=== PATIENT | male | born 1965 | race Caucasian/White ===

== ENCOUNTER 2020-08-10 09:09 | Outpatient (REF) | payer OTHER, SELFPAY ==
[2020-08-10 09:40] LABS: Basophils Percent Auto 0.7 % (0-2); Eosinophils Absolute Auto 0.3 X10*3/uL (0.0-0.4); Eosinophils Percent Auto 5.6 % (0-4); Hematocrit 42.5 % (42-52); Imm Gran Abs Auto 0.01 X10*3/uL (0.00-0.03); Imm Gran Pct Auto 0.2 % (0.0-0.4); Lymphocytes Absolute Auto 1.3 X10*3/uL (1.2-4.9); Lymphocytes Percent Auto 21.2 % (20-40); MANUAL DIFF FLAG NO; Mean Corpuscular HGB Conc 32.9 g/dl (31.0-36.0); Mean Corpuscular Hemoglobin 29.3 pg (27.0-33.0); Mean Corpuscular Volume 88.9 fL (80-98); Mean Platelet Volume 9.5 fL (9.4-12.4); Monocytes Absolute Auto 0.4 X10*3/uL (0.1-1.2); Monocytes Percent Auto 6.8 % (2-11); Neutrophils Percent Auto 65.5 % (45-73); Platelet Count 247 X10*3/uL (160-400); Red Blood Count 4.78 X10*6/uL (4.60-5.80); Red Cell Distribution Width 13.1 % (11.0-16.0)
[2020-08-10 09:42] LABS: Glucose Urine UA >=1000 MG/DL (NEG); Leukocyte Esterase Urine NEG (NEG); Nitrite Urine NEG (NEG); PH 6.5 (5.0-8.0); Specific Gravity - Urine 1.025 (1.005-1.025); Urine Blood NEG (NEG); Urine Ketones NEG (NEG); Urine Protein NEG (NEG-TRACE)
[2020-08-10 09:51] LABS: Appearance Urine CLEAR; Color Urine YELLOW
[2020-08-10 09:54] LABS: Estimated Average Glucose 301 mg/dL; Hemoglobin A1c % 12.1 %
[2020-08-10 10:02] LABS: Alanine Aminotransferase 24 U/L (0-40); Albumin Level 4.2 g/dL (3.5-5.0); Alkaline Phosphatase 97 U/L (39-117); Anion Gap 11 (12-20); Aspartate Amino Transferase 18 U/L (5-37); Bilirubin Total 0.5 mg/dL (0.0-1.0); Blood Urea Nitrogen 13 mg/dL (9-16); Calcium 9.2 mg/dL (8.4-10.2); Carbon Dioxide 30 mmol/L (22-29); Chloride 101 mmol/L (96-108); Cholesterol 144 mg/dL; Creatinine Urine 128.05 mg/dL; Estimated Glomerular Filt Rate > 60; Glucose Fasting 241 mg/dL (60-99); HDL Cholesterol 55 mg/dL; LDL Cholesterol Calculated 79 mg/dl; Microalbum/Creatinine Ratio Ur 6.2 ug/mg cr; Potassium 4.2 mmol/l (3.3-5.1); Sodium 138 mmol/L (135-145); Total Protein 7.1 g/dL (6.5-8.0); Triglycerides 53 mg/dL
[2020-08-10 10:03] LABS: RBC Urine 0-2 /HPF (0); WBC Urine 0 /HPF (0-4)
[2020-08-10 10:22] LABS: TSH reflex Free T4 1.64 mIU/mL (0.32-4.0)
== END 2020-08-10 09:10 | disposition home or self-care (01) ==
LOC: HO.LAB 09:09
PROVIDERS: PCP Internal Medicine; Visit Provider Internal Medicine
DX: E11.9 Type 2 diabetes mellitus without complications (principal); E78.5 Hyperlipidemia, unspecified; E66.3 Overweight; G62.9 Polyneuropathy, unspecified; K21.9 Gastro-esophageal reflux disease without esophagitis; R79.89 Other specified abnormal findings of blood chemistry
CPT/HCPCS: 36415; 80053; 80061; 81001; 82043; 83036; 84443; 85025

== ENCOUNTER 2020-11-02 08:23 | Outpatient (REF) | payer OTHER, SELFPAY ==
[2020-11-02 09:09] LABS: Glucose Urine UA 500 MG/DL (NEG); Leukocyte Esterase Urine NEG (NEG); Nitrite Urine NEG (NEG); Specific Gravity - Urine >= 1.030 (1.005-1.025); Urine Blood NEG (NEG); Urine Ketones NEG (NEG); Urine Protein NEG (NEG-TRACE)
[2020-11-02 09:09] LABS: MANUAL DIFF FLAG NO
[2020-11-02 09:15] LABS: Appearance Urine CLEAR; Color Urine YELLOW
[2020-11-02 09:17] LABS: Basophils Percent Auto 1.1 % (0-2); Eosinophils Absolute Auto 0.5 X10*3/uL (0.0-0.4); Eosinophils Percent Auto 12.9 % (0-4); Hematocrit 41.5 % (42-52); Hemoglobin 13.4 g/dl (14.0-18.0); Imm Gran Abs Auto 0.01 X10*3/uL (0.00-0.03); Imm Gran Pct Auto 0.3 % (0.0-0.4); Lymphocytes Absolute Auto 1.4 X10*3/uL (1.2-4.9); Lymphocytes Percent Auto 37.5 % (20-40); Mean Corpuscular HGB Conc 32.3 g/dl (31.0-36.0); Mean Corpuscular Hemoglobin 29.1 pg (27.0-33.0); Mean Corpuscular Volume 90.2 fL (80-98); Mean Platelet Volume 9.2 fL (9.4-12.4); Monocytes Absolute Auto 0.3 X10*3/uL (0.1-1.2); Monocytes Percent Auto 8.5 % (2-11); Neutrophils Absolute Auto 1.4 X10*3/uL (2.0-8.3); Neutrophils Percent Auto 39.7 % (45-73); Platelet Count 251 X10*3/uL (160-400); Red Cell Distribution Width 13.3 % (11.0-16.0); White Blood Count 3.6 X10*3/uL (4.8-10.8)
[2020-11-02 09:43] LABS: Alanine Aminotransferase 21 U/L (0-40); Albumin Level 4.3 g/dL (3.5-5.0); Alkaline Phosphatase 81 U/L (39-117); Anion Gap 13 (12-20); Aspartate Amino Transferase 17 U/L (5-37); Bilirubin Total 0.4 mg/dL (0.0-1.0); Blood Urea Nitrogen 15 mg/dL (9-16); Calcium 9.1 mg/dL (8.4-10.2); Carbon Dioxide 28 mmol/L (22-29); Chloride 103 mmol/L (96-108); Cholesterol 157 mg/dL; Estimated Glomerular Filt Rate > 60; Glucose Fasting 177 mg/dL (60-99); HDL Cholesterol 56 mg/dL; LDL Cholesterol Calculated 91 mg/dl; Potassium 4.6 mmol/L (3.3-5.1); Sodium 139 mmol/L (135-145); Total Protein 7.3 g/dL (6.5-8.0); Triglycerides 50 mg/dL
[2020-11-02 09:48] LABS: Creatinine Urine 185.59 mg/dL; Microalbum/Creatinine Ratio Ur 5.9 ug/mg cr
[2020-11-02 10:07] LABS: TSH reflex Free T4 1.98 uIU/mL (0.32-4.0)
[2020-11-02 14:06] LABS: Folate 10.9 ng/mL (> or = 4.0); Vitamin B12 272 pg/mL (200-900)
== END 2020-11-02 08:24 | disposition home or self-care (01) ==
LOC: HO.LAB 08:23
PROVIDERS: PCP Internal Medicine; Visit Provider Internal Medicine
DX: E11.9 Type 2 diabetes mellitus without complications (principal); E66.3 Overweight; E78.00 Pure hypercholesterolemia, unspecified; K21.9 Gastro-esophageal reflux disease without esophagitis; G62.9 Polyneuropathy, unspecified
CPT/HCPCS: 36415; 80053; 80061; 81003; 82043; 82607; 82746; 84443; 85025

== ENCOUNTER → 2020-12-04 13:56 | Outpatient (BNVA) | payer OTHER, SELFPAY | PROVIDERS: PCP Internal Medicine; Visit Provider Internal Medicine | DX: E11.40 Type 2 diabetes mellitus with diabetic neuropathy, unspecified (principal); E78.5 Hyperlipidemia, unspecified; I10 Essential (primary) hypertension; E78.00 Pure hypercholesterolemia, unspecified; E55.9 Vitamin D deficiency, unspecified; Z88.0 Allergy status to penicillin; Z79.84 Long term (current) use of oral hypoglycemic drugs; Z79.899 Other long term (current) drug therapy | CPT/HCPCS: 82947 ==

== ENCOUNTER → 2021-01-29 15:57 | Outpatient (BNVA) | payer OTHER, SELFPAY | PROVIDERS: PCP Internal Medicine; Visit Provider Internal Medicine | DX: E78.5 Hyperlipidemia, unspecified (principal); I10 Essential (primary) hypertension; E11.9 Type 2 diabetes mellitus without complications | CPT/HCPCS: 82947 ==

== ENCOUNTER 2021-02-15 09:06 | Outpatient (REF) | payer OTHER, SELFPAY ==
[2021-02-15 09:25] LABS: MANUAL DIFF FLAG NO
[2021-02-15 09:41] LABS: Eosinophils Absolute Auto 0.4 X10*3/uL (0.0-0.4); Eosinophils Percent Auto 9.4 % (0-4); Hemoglobin 13.9 g/dl (14.0-18.0); Imm Gran Abs Auto 0.01 X10*3/uL (0.00-0.03); Imm Gran Pct Auto 0.3 % (0.0-0.4); Lymphocytes Absolute Auto 1.5 X10*3/uL (1.2-4.9); Lymphocytes Percent Auto 38.2 % (20-40); Mean Corpuscular HGB Conc 33.1 g/dl (31.0-36.0); Mean Corpuscular Hemoglobin 29.6 pg (27.0-33.0); Mean Corpuscular Volume 89.6 fL (80-98); Mean Platelet Volume 8.9 fL (9.4-12.4); Monocytes Absolute Auto 0.3 X10*3/uL (0.1-1.2); Monocytes Percent Auto 8.4 % (2-11); Neutrophils Absolute Auto 1.6 X10*3/uL (2.0-8.3); Neutrophils Percent Auto 42.7 % (45-73); Platelet Count 231 X10*3/uL (160-400); Red Blood Count 4.69 X10*6/uL (4.60-5.80); Red Cell Distribution Width 13.4 % (11.0-16.0); White Blood Count 3.8 X10*3/uL (4.8-10.8)
[2021-02-15 09:56] LABS: Alanine Aminotransferase 26 U/L (0-40); Albumin Level 4.5 g/dL (3.5-5.0); Alkaline Phosphatase 76 U/L (39-117); Anion Gap 12 (12-20); Aspartate Amino Transferase 21 U/L (5-37); Bilirubin Total 0.4 mg/dL (0.0-1.0); Blood Urea Nitrogen 15 mg/dL (9-16); Calcium 9.1 mg/dL (8.4-10.2); Carbon Dioxide 29 mmol/L (22-29); Chloride 104 mmol/L (96-108); Cholesterol 134 mg/dL; Estimated Glomerular Filt Rate > 60; Glucose Fasting 125 mg/dL (60-99); HDL Cholesterol 52 mg/dL; LDL Cholesterol Calculated 71 mg/dl; Potassium 4.6 mmol/L (3.3-5.1); Sodium 140 mmol/L (135-145); Total Protein 7.5 g/dL (6.5-8.0); Triglycerides 58 mg/dL
[2021-02-15 10:17] LABS: TSH reflex Free T4 0.95 uIU/mL (0.32-4.0)
[2021-02-15 10:18] LABS: Vitamin D 25-OH Total 15.8 ng/mL (>30)
[2021-02-15 10:26] LABS: Glucose Urine UA NEG (NEG); Leukocyte Esterase Urine NEG (NEG); Nitrite Urine NEG (NEG); Urine Blood NEG (NEG); Urine Ketones NEG (NEG); Urine Protein NEG (NEG-TRACE)
[2021-02-15 10:27] LABS: Appearance Urine CLEAR; Color Urine YELLOW
[2021-02-15 10:33] LABS: Estimated Average Glucose 169 mg/dL; Hemoglobin A1c % 7.5 %
[2021-02-15 10:41] LABS: Creatinine Urine 205.71 mg/dL; Microalbum/Creatinine Ratio Ur 4.8 ug/mg cr
[2021-02-17 04:20] LABS: Folate 9.6 ng/mL (> or = 4.0); Vitamin B12 262 pg/mL (200-900)
== END 2021-02-15 09:07 | disposition home or self-care (01) ==
LOC: HO.LAB 09:06
PROVIDERS: Internal Medicine; PCP Internal Medicine; Visit Provider Internal Medicine
DX: E11.42 Type 2 diabetes mellitus with diabetic polyneuropathy (principal); E78.00 Pure hypercholesterolemia, unspecified; K21.9 Gastro-esophageal reflux disease without esophagitis; G62.9 Polyneuropathy, unspecified; E11.9 Type 2 diabetes mellitus without complications; E66.3 Overweight; E55.9 Vitamin D deficiency, unspecified; Z79.4 Long term (current) use of insulin
CPT/HCPCS: 36415; 80053; 80061; 81003; 82043; 82306; 82607; 82746; 83036; 84443; 85025

== ENCOUNTER 2021-03-09 00:13 | Emergency (ER) | payer OTHER, SELFPAY ==
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
[2021-03-09 00:22] VITALS: BP 136/74; PULSE 88; RESP 16; TEMP 36.7; O2SAT 98; BMI 25.9
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
[2021-03-09 01:15] LABS: Basophils Percent Auto 0.9 % (0-2); Eosinophils Absolute Auto 0.2 X10*3/uL (0.0-0.4); Eosinophils Percent Auto 4.2 % (0-4); Hematocrit 39.6 % (42-52); Hemoglobin 13.2 g/dl (14.0-18.0); Imm Gran Abs Auto 0.02 X10*3/uL (0.00-0.03); Imm Gran Pct Auto 0.4 % (0.0-0.4); Lymphocytes Absolute Auto 1.3 X10*3/uL (1.2-4.9); Lymphocytes Percent Auto 28.4 % (20-40); MANUAL DIFF FLAG NO; Mean Corpuscular HGB Conc 33.3 g/dl (31.0-36.0); Mean Corpuscular Hemoglobin 29.7 pg (27.0-33.0); Mean Platelet Volume 8.9 fL (9.4-12.4); Monocytes Absolute Auto 0.3 X10*3/uL (0.1-1.2); Monocytes Percent Auto 6.6 % (2-11); Neutrophils Absolute Auto 2.7 X10*3/uL (2.0-8.3); Neutrophils Percent Auto 59.5 % (45-73); Platelet Count 253 X10*3/uL (160-400); Red Blood Count 4.45 X10*6/uL (4.60-5.80); Red Cell Distribution Width 13.5 % (11.0-16.0); White Blood Count 4.5 X10*3/uL (4.8-10.8)
[2021-03-09] MEDS: iohexoL 350 MG/ML 100 ML INFUS..BTL 85 ML IV (01:27)
[2021-03-09 01:43] LABS: Ethanol 114 mg/dL
[2021-03-09 01:51] LABS: Troponin-I High Sensitivity < 3.5 ng/L (<3.5-35.0)
[2021-03-09 01:53] LABS: Prothrombin Time 11.9 SEC (9.9-13.0)
[2021-03-09 01:57] VITALS: BP 119/65; PULSE 77; RESP 16; TEMP 36.8; O2SAT 98
[2021-03-09] MEDS: Ketorolac Tromethamine 15 MG/ML VIAL IVPUSH (02:01)
[2021-03-09] MEDS: Acetaminophen 325 MG TABLET 975 MG PO (02:01)
[2021-03-09 02:08] LABS: Glucose Urine UA NEG (NEG); Leukocyte Esterase Urine NEG (NEG); Nitrite Urine NEG (NEG); PH 5.5 (5.0-8.0); Specific Gravity - Urine <= 1.005 (1.005-1.025); Urine Blood NEG (NEG); Urine Ketones NEG (NEG); Urine Protein NEG (NEG-TRACE)
[2021-03-09 02:17] LABS: Appearance Urine CLEAR; Color Urine COLORLESS
[2021-03-09 02:17] LABS: Alanine Aminotransferase 27 U/L (0-40); Albumin Level 4.2 g/dL (3.5-5.0); Alkaline Phosphatase 69 U/L (39-117); Anion Gap 17 (12-20); Aspartate Amino Transferase 22 U/L (5-37); Bilirubin Total 0.5 mg/dL (0.0-1.0); Blood Urea Nitrogen 13 mg/dL (9-16); Calcium 9.3 mg/dL (8.4-10.2); Carbon Dioxide 22 mmol/L (22-29); Chloride 101 mmol/L (96-108); Creatinine Clr Calc Pharmacy 83.2; Estimated Glomerular Filt Rate > 60; Glucose Random 134 mg/dL (60-115); Potassium 4.1 mmol/L (3.3-5.1); Sodium 136 mmol/L (135-145)
[2021-03-09 02:29] LABS: Amphetamine Screen Urine Not Detected (Not Detect); Barbiturates, Urine Not Detected (Not Detect); Benzodiazepines Screen Urine Not Detected (Not Detect); Cannabinoid Screen Urine Not Detected (Not Detect); Cocaine Screen Urine Not Detected (Not Detect); Opiate Screen Urine Not Detected (Not Detect); Phencyclidine Screen Urine Not Detected (Not Detect)
== END 2021-03-09 03:36 | disposition home or self-care (01) ==
PROVIDERS: Emergency Provider Student in an Organized Health Care Education/Training Program
DX: S29.9XXA Unspecified injury of thorax, initial encounter (principal); M54.6 Pain in thoracic spine; R10.9 Unspecified abdominal pain; E11.9 Type 2 diabetes mellitus without complications; V43.62XA Car passenger injured in collision with other type car in traffic accident, initial encounter; Y93.9 Activity, unspecified; Y92.410 Unspecified street and highway as the place of occurrence of the external cause; Y99.9 Unspecified external cause status; Z79.4 Long term (current) use of insulin; Z79.899 Other long term (current) drug therapy
CPT/HCPCS: 36415; 71045; 71260; 74177; 80053; 80307; 81003; 82077; 84484; 85025; 85610; 90471; 93005; 96374; 96375; 99284; J1885; Q9967

== ENCOUNTER → 2021-03-14 10:39 | Outpatient (BNVA) | payer OTHER, SELFPAY | PROVIDERS: PCP Internal Medicine; Visit Provider Student in an Organized Health Care Education/Training Program ==

== ENCOUNTER 2021-04-25 09:08 | Outpatient (REF) | payer OTHER, SELFPAY ==
[2021-04-25 10:36] LABS: Alanine Aminotransferase 21 U/L (0-40); Albumin Level 4.4 g/dL (3.5-5.0); Alkaline Phosphatase 84 U/L (39-117); Anion Gap 10 (12-20); Aspartate Amino Transferase 16 U/L (5-37); Bilirubin Total 0.5 mg/dL (0.0-1.0); Blood Urea Nitrogen 12 mg/dL (9-16); Calcium 9.5 mg/dL (8.4-10.2); Carbon Dioxide 29 mmol/L (22-29); Chloride 104 mmol/L (96-108); Cholesterol 114 mg/dL; Estimated Glomerular Filt Rate > 60; Glucose Random 125 mg/dL (60-115); HDL Cholesterol 47 mg/dL; LDL Cholesterol Calculated 56 mg/dl; Potassium 4.7 mmol/L (3.3-5.1); Sodium 138 mmol/L (135-145); Total Protein 7.4 g/dL (6.5-8.0); Triglycerides 57 mg/dL
[2021-04-25 10:48] LABS: Estimated Average Glucose 146 mg/dL; Hemoglobin A1c % 6.7 %
[2021-04-25 10:56] LABS: Vitamin D 25-OH Total 20.2 ng/mL (>30)
[2021-04-26 20:25] LABS: LDL Cholesterol Direct 49 mg/dL (<100)
== END 2021-04-25 09:09 | disposition home or self-care (01) ==
LOC: HO.LAB 09:08
PROVIDERS: Absent Provider Internal Medicine; PCP Internal Medicine; Visit Provider Internal Medicine
DX: E11.9 Type 2 diabetes mellitus without complications (principal); E78.5 Hyperlipidemia, unspecified; E55.9 Vitamin D deficiency, unspecified
CPT/HCPCS: 36415; 80053; 80061; 82306; 83036; 83721

== ENCOUNTER → 2021-05-01 15:34 | Outpatient (BNVA) | payer OTHER, SELFPAY | PROVIDERS: PCP Internal Medicine; Visit Provider Internal Medicine | DX: E11.9 Type 2 diabetes mellitus without complications (principal); I10 Essential (primary) hypertension; E78.5 Hyperlipidemia, unspecified; E55.9 Vitamin D deficiency, unspecified; R94.5 Abnormal results of liver function studies; Z88.0 Allergy status to penicillin; Z79.4 Long term (current) use of insulin; Z79.899 Other long term (current) drug therapy | CPT/HCPCS: 82947 ==

== ENCOUNTER 2021-05-27 08:23 | Outpatient (REF) | payer OTHER, SELFPAY ==
[2021-05-27 08:51] LABS: MANUAL DIFF FLAG NO
[2021-05-27 09:05] LABS: Basophils Percent Auto 0.9 % (0-2); Eosinophils Absolute Auto 0.2 X10*3/uL (0.0-0.4); Eosinophils Percent Auto 7.3 % (0-4); Hematocrit 37.8 % (42-52); Hemoglobin 12.7 g/dl (14.0-18.0); Imm Gran Abs Auto 0.01 X10*3/uL (0.00-0.03); Imm Gran Pct Auto 0.3 % (0.0-0.4); Lymphocytes Absolute Auto 0.9 X10*3/uL (1.2-4.9); Lymphocytes Percent Auto 28.7 % (20-40); Mean Corpuscular HGB Conc 33.6 g/dl (31.0-36.0); Mean Corpuscular Hemoglobin 29.9 pg (27.0-33.0); Mean Corpuscular Volume 88.9 fL (80-98); Mean Platelet Volume 8.9 fL (9.4-12.4); Monocytes Absolute Auto 0.3 X10*3/uL (0.1-1.2); Monocytes Percent Auto 8.8 % (2-11); Neutrophils Absolute Auto 1.7 X10*3/uL (2.0-8.3); Platelet Count 239 X10*3/uL (160-400); Red Blood Count 4.25 X10*6/uL (4.60-5.80); Red Cell Distribution Width 12.8 % (11.0-16.0); White Blood Count 3.2 X10*3/uL (4.8-10.8)
[2021-05-27 09:12] LABS: Estimated Average Glucose 146 mg/dL; Hemoglobin A1c % 6.7 %
[2021-05-27 09:21] LABS: Appearance Urine CLEAR; Color Urine YELLOW; Glucose Urine UA NEG (NEG); Leukocyte Esterase Urine NEG (NEG); Nitrite Urine NEG (NEG); Urine Blood NEG (NEG); Urine Ketones NEG (NEG); Urine Protein NEG (NEG-TRACE)
[2021-05-27 09:36] LABS: Alanine Aminotransferase 23 U/L (0-40); Albumin Level 4.2 g/dL (3.5-5.0); Alkaline Phosphatase 78 U/L (39-117); Anion Gap 11 (12-20); Aspartate Amino Transferase 15 U/L (5-37); Bilirubin Total 0.6 mg/dL (0.0-1.0); Blood Urea Nitrogen 10 mg/dL (9-16); Calcium 9.3 mg/dL (8.4-10.2); Carbon Dioxide 26 mmol/L (22-29); Chloride 108 mmol/L (96-108); Cholesterol 148 mg/dL; Estimated Glomerular Filt Rate > 60; Glucose Fasting 177 mg/dL (60-99); HDL Cholesterol 43 mg/dL; LDL Cholesterol Calculated 88 mg/dl; Potassium 4.5 mmol/L (3.3-5.1); Sodium 140 mmol/L (135-145); Triglycerides 88 mg/dL
[2021-05-27 09:37] LABS: Creatinine Urine 195.82 mg/dL; Microalbum/Creatinine Ratio Ur 5.6 ug/mg cr
[2021-05-27 09:47] LABS: TSH reflex Free T4 1.65 uIU/mL (0.32-4.0); Vitamin D 25-OH Total 14.5 ng/mL (>30)
[2021-05-27 10:04] LABS: Folate 8.3 ng/mL (> or = 4.0); Vitamin B12 253 pg/mL (200-900)
== END 2021-05-27 08:24 | disposition home or self-care (01) ==
LOC: HO.LAB 08:23
PROVIDERS: PCP Internal Medicine; Visit Provider Internal Medicine
DX: I10 Essential (primary) hypertension (principal); K21.9 Gastro-esophageal reflux disease without esophagitis; E78.00 Pure hypercholesterolemia, unspecified; R94.5 Abnormal results of liver function studies; E66.3 Overweight; G62.9 Polyneuropathy, unspecified; E55.9 Vitamin D deficiency, unspecified; E11.42 Type 2 diabetes mellitus with diabetic polyneuropathy; Z79.4 Long term (current) use of insulin
CPT/HCPCS: 36415; 80053; 80061; 81003; 82043; 82306; 82607; 82746; 83036; 84443; 85025

== ENCOUNTER 2021-09-29 07:42 | Outpatient (REF) | payer OTHER, SELFPAY ==
[2021-09-29 08:01] LABS: MANUAL DIFF FLAG NO
[2021-09-29 08:38] LABS: Appearance Urine CLEAR; Color Urine YELLOW; Glucose Urine UA NEG (NEG); Leukocyte Esterase Urine NEG (NEG); Nitrite Urine NEG (NEG); Specific Gravity - Urine >= 1.030 (1.005-1.025); Urine Blood NEG (NEG); Urine Ketones NEG (NEG); Urine Protein NEG (NEG-TRACE)
[2021-09-29 08:45] LABS: Basophils Absolute Auto 0.1 X10*3/uL (0.0-0.2); Basophils Percent Auto 1.5 % (0-2); Eosinophils Absolute Auto 0.5 X10*3/uL (0.0-0.4); Eosinophils Percent Auto 13.6 % (0-4); Hematocrit 42.2 % (42.0-52.0); Hemoglobin 13.7 g/dl (14.0-18.0); Imm Gran Abs Auto 0.01 X10*3/uL (0.00-0.03); Imm Gran Pct Auto 0.3 % (0.0-0.4); Lymphocytes Absolute Auto 1.3 X10*3/uL (1.2-4.9); Lymphocytes Percent Auto 37.6 % (20-40); Mean Corpuscular HGB Conc 32.5 g/dl (31.0-36.0); Mean Corpuscular Hemoglobin 28.7 pg (27.0-33.0); Mean Corpuscular Volume 88.3 fL (80.0-98.0); Mean Platelet Volume 9.1 fL (9.4-12.4); Monocytes Absolute Auto 0.3 X10*3/uL (0.1-1.2); Monocytes Percent Auto 9.8 % (2-11); Neutrophils Absolute Auto 1.3 x10*3/uL (2.0-8.3); Neutrophils Percent Auto 37.2 % (45-73); Platelet Count 289 X10*3/uL (160-400); Red Blood Count 4.78 X10*6/uL (4.60-5.80); Red Cell Distribution Width 13.1 % (11.0-16.0); White Blood Count 3.4 X10*3/uL (4.8-10.8)
[2021-09-29 08:52] LABS: Estimated Average Glucose 180 mg/dL; Hemoglobin A1c % 7.9 %
[2021-09-29 09:07] LABS: Alanine Aminotransferase 20 U/L (0-40); Albumin Level 4.4 g/dL (3.5-5.0); Alkaline Phosphatase 88 U/L (39-117); Anion Gap 12 (12-20); Aspartate Amino Transferase 17 U/L (5-37); Bilirubin Total 0.5 mg/dL (0.0-1.0); Blood Urea Nitrogen 18 mg/dL (9-16); Calcium 10.1 mg/dL (8.4-10.2); Carbon Dioxide 31 mmol/L (22-29); Chloride 103 mmol/L (96-108); Cholesterol 153 mg/dL; Estimated Glomerular Filt Rate > 60; Glucose Fasting 194 mg/dL (60-99); HDL Cholesterol 53 mg/dL; LDL Cholesterol Calculated 90 mg/dl; Potassium 5.7 mmol/L (3.3-5.1); Sodium 140 mmol/L (135-145); Total Protein 7.7 g/dL (6.5-8.0); Triglycerides 52 mg/dL
[2021-09-29 09:10] LABS: Creatinine Urine 240.77 mg/dL; Microalbum/Creatinine Ratio Ur 4.9 ug/mg cr
[2021-09-29 09:29] LABS: Vitamin D 25-OH Total 15.5 ng/mL (>30)
== END 2021-09-29 07:43 | disposition home or self-care (01) ==
LOC: HO.LAB 07:42
PROVIDERS: PCP Internal Medicine; Visit Provider Internal Medicine
DX: E11.9 Type 2 diabetes mellitus without complications (principal); E78.00 Pure hypercholesterolemia, unspecified; E55.9 Vitamin D deficiency, unspecified; I10 Essential (primary) hypertension
CPT/HCPCS: 36415; 80053; 80061; 81003; 82043; 82306; 83036; 84443; 85025

== ENCOUNTER → 2021-11-05 14:54 | Outpatient (BNVA) | payer OTHER, SELFPAY | PROVIDERS: PCP Internal Medicine; Visit Provider Internal Medicine | DX: E11.9 Type 2 diabetes mellitus without complications (principal); I10 Essential (primary) hypertension; E78.5 Hyperlipidemia, unspecified; Z79.4 Long term (current) use of insulin | CPT/HCPCS: 82947 ==

== ENCOUNTER 2022-04-25 08:32 | Outpatient (REF) | payer OTHER, SELFPAY ==
[2022-04-25 09:33] LABS: Estimated Average Glucose 151 mg/dL; Hemoglobin A1c % 6.9 %
[2022-04-25 09:59] LABS: Alanine Aminotransferase 22 U/L (0-40); Albumin Level 4.4 g/dL (3.5-5.0); Alkaline Phosphatase 78 U/L (39-117); Anion Gap 15 (12-20); Aspartate Amino Transferase 18 U/L (5-37); Bilirubin Total 0.6 mg/dL (0.0-1.0); Blood Urea Nitrogen 14 mg/dL (9-16); Calcium 9.6 mg/dL (8.4-10.2); Carbon Dioxide 27 mmol/L (22-29); Chloride 103 mmol/L (96-108); Estimated Glomerular Filt Rate > 60; Glucose Random 145 mg/dL (60-115); Potassium 4.7 mmol/L (3.3-5.1); Sodium 140 mmol/L (135-145); Total Protein 7.7 g/dL (6.5-8.0)
[2022-04-25 10:17] LABS: Vitamin B12 315 pg/mL (200-900)
[2022-04-25 10:48] LABS: Vitamin D 25-OH Total 26.2 ng/mL (>30)
== END 2022-04-25 08:33 | disposition home or self-care (01) ==
LOC: HO.LAB 08:32
PROVIDERS: PCP Internal Medicine; Visit Provider Internal Medicine
DX: E11.9 Type 2 diabetes mellitus without complications (principal); E55.9 Vitamin D deficiency, unspecified
CPT/HCPCS: 36415; 80053; 82306; 82607; 83036

== ENCOUNTER → 2022-04-29 14:55 | Outpatient (BNVA) | payer OTHER, SELFPAY | PROVIDERS: PCP Internal Medicine; Visit Provider Internal Medicine | DX: E11.9 Type 2 diabetes mellitus without complications (principal); I10 Essential (primary) hypertension; E78.5 Hyperlipidemia, unspecified | CPT/HCPCS: 82947 ==

== ENCOUNTER 2022-05-23 08:34 | Outpatient (REF) | payer OTHER, SELFPAY ==
[2022-05-23 09:05] LABS: MANUAL DIFF FLAG NO
[2022-05-23 09:23] LABS: Basophils Percent Auto 0.8 % (0-2); Eosinophils Absolute Auto 0.3 X10*3/uL (0.0-0.4); Eosinophils Percent Auto 7.2 % (0-4); Hematocrit 41.4 % (42.0-52.0); Hemoglobin 13.8 g/dl (14.0-18.0); Imm Gran Abs Auto 0.01 X10*3/uL (0.00-0.03); Imm Gran Pct Auto 0.3 % (0.0-0.4); Lymphocytes Absolute Auto 1.4 X10*3/uL (1.2-4.9); Lymphocytes Percent Auto 38.4 % (20-40); Mean Corpuscular HGB Conc 33.3 g/dl (31.0-36.0); Monocytes Absolute Auto 0.3 X10*3/uL (0.1-1.2); Monocytes Percent Auto 8.8 % (2-11); Neutrophils Absolute Auto 1.7 x10*3/uL (2.0-8.3); Neutrophils Percent Auto 44.5 % (45-73); Platelet Count 230 X10*3/uL (160-400); Red Cell Distribution Width 13.3 % (11.0-16.0); White Blood Count 3.8 X10*3/uL (4.8-10.8)
[2022-05-23 09:33] LABS: Estimated Average Glucose 146 mg/dL; Hemoglobin A1c % 6.7 %
[2022-05-23 09:43] LABS: Appearance Urine Clear; Color Urine Yellow; Glucose Urine UA Negative (Negative); Leukocyte Esterase Urine Negative (Negative); Nitrite Urine Negative (Negative); PH 5.5 (5.0-9.0); Specific Gravity - Urine 1.025 (1.005-1.025); Urine Blood Negative (Negative); Urine Ketones Negative (Negative); Urine Protein Negative (Neg-Trace)
[2022-05-23 09:48] LABS: Creatinine Urine 153.12 mg/dL
[2022-05-23 10:11] LABS: Alanine Aminotransferase 21 U/L (0-40); Albumin Level 4.4 g/dL (3.5-5.0); Alkaline Phosphatase 70 U/L (39-117); Anion Gap 14 (12-20); Aspartate Amino Transferase 18 U/L (5-37); Bilirubin Total 0.4 mg/dL (0.0-1.0); Blood Urea Nitrogen 16 mg/dL (9-16); Calcium 9.4 mg/dL (8.4-10.2); Carbon Dioxide 28 mmol/L (22-29); Chloride 106 mmol/L (96-108); Cholesterol 137 mg/dL; Estimated Glomerular Filt Rate > 60; Glucose Fasting 124 mg/dL (60-99); HDL Cholesterol 54 mg/dL; LDL Cholesterol Calculated 73 mg/dl; Potassium 4.7 mmol/L (3.3-5.1); Sodium 143 mmol/L (135-145); Total Protein 7.3 g/dL (6.5-8.0); Triglycerides 54 mg/dL
[2022-05-23 10:48] LABS: TSH reflex Free T4 2.25 uIU/mL (0.32-4.0); Vitamin D 25-OH Total 22.3 ng/mL (>30)
== END 2022-05-23 08:35 | disposition home or self-care (01) ==
LOC: HO.LAB 08:34
PROVIDERS: PCP Internal Medicine; Visit Provider Internal Medicine
DX: E55.9 Vitamin D deficiency, unspecified (principal); E87.5 Hyperkalemia; I10 Essential (primary) hypertension; E78.00 Pure hypercholesterolemia, unspecified; E11.9 Type 2 diabetes mellitus without complications
CPT/HCPCS: 36415; 80048; 80053; 80061; 81003; 82043; 82306; 83036; 84443; 85025

== ENCOUNTER 2022-10-09 08:08 | Outpatient (REF) | payer OTHER, SELFPAY ==
[2022-10-09 08:30] LABS: MANUAL DIFF FLAG NO
[2022-10-09 08:51] LABS: Basophils Percent Auto 1.1 % (0-2); Eosinophils Absolute Auto 0.4 X10*3/uL (0.0-0.4); Eosinophils Percent Auto 10.1 % (0-4); Hematocrit 42.7 % (42.0-52.0); Hemoglobin 14.4 g/dl (14.0-18.0); Imm Gran Abs Auto 0.01 X10*3/uL (0.00-0.03); Imm Gran Pct Auto 0.3 % (0.0-0.4); Lymphocytes Absolute Auto 1.6 X10*3/uL (1.2-4.9); Lymphocytes Percent Auto 41.4 % (20-40); Mean Corpuscular HGB Conc 33.7 g/dl (31.0-36.0); Mean Platelet Volume 8.9 fL (9.4-12.4); Monocytes Absolute Auto 0.4 X10*3/uL (0.1-1.2); Monocytes Percent Auto 9.5 % (2-11); Neutrophils Absolute Auto 1.4 x10*3/uL (2.0-8.3); Neutrophils Percent Auto 37.6 % (45-73); Platelet Count 251 X10*3/uL (160-400); Red Cell Distribution Width 12.9 % (11.0-16.0); White Blood Count 3.8 X10*3/uL (4.8-10.8)
[2022-10-09 08:58] LABS: Estimated Average Glucose 169 mg/dL; Hemoglobin A1c % 7.5 %
[2022-10-09 09:26] LABS: Alanine Aminotransferase 26 U/L (0-40); Albumin Level 4.4 g/dL (3.5-5.0); Alkaline Phosphatase 69 U/L (39-117); Anion Gap 14 (12-20); Aspartate Amino Transferase 21 U/L (5-37); Bilirubin Total 0.9 mg/dL (0.0-1.0); Blood Urea Nitrogen 13 mg/dL (9-16); Calcium 9.6 mg/dL (8.4-10.2); Carbon Dioxide 26 mmol/L (22-29); Chloride 103 mmol/L (96-108); Cholesterol 156 mg/dL; Estimated Glomerular Filt Rate > 60; Glucose Fasting 121 mg/dL (60-99); HDL Cholesterol 51 mg/dL; LDL Cholesterol Calculated 92 mg/dl; Potassium 4.8 mmol/L (3.3-5.1); Sodium 138 mmol/L (135-145); Total Protein 7.3 g/dL (6.5-8.0); Triglycerides 69 mg/dL
[2022-10-09 09:34] LABS: Appearance Urine Clear; Color Urine Yellow; Glucose Urine UA >=1000 mg/dL (Negative); Leukocyte Esterase Urine Negative (Negative); Nitrite Urine Negative (Negative); PH 6.5 (5.0-9.0); Specific Gravity - Urine >= 1.030 (1.005-1.025); UMIC TRIGGER UACC YES; Urine Blood Negative (Negative); Urine Ketones Negative (Negative); Urine Protein Negative (Neg-Trace)
[2022-10-09 09:37] LABS: Bacteria Urine None Seen (None Seen); Hyaline Casts Urine 0-2 /LPF (0-2); RBC Urine 0-2 /HPF (0-2); Squamous Epithelial Cell Urine 0-2 /HPF (0-2); WBC Urine 0-5 /HPF (0-5)
[2022-10-09 09:45] LABS: Prostate Specific Antigen 1.59 ng/mL (<0.05-4.0); TSH reflex Free T4 1.78 uIU/mL (0.32-4.0); Vitamin D 25-OH Total 23.3 ng/mL (>30)
[2022-10-09 10:22] LABS: Creatinine Urine 117.43 mg/dL; Microalbumin Urine < 5.0 mg/L
[2022-10-11 15:23] LABS: LDL Cholesterol Direct 83 mg/dL (<100)
== END 2022-10-09 08:09 | disposition home or self-care (01) ==
LOC: HO.LAB 08:08
PROVIDERS: Internal Medicine; PCP Internal Medicine; Visit Provider Internal Medicine
DX: Z12.5 Encounter for screening for malignant neoplasm of prostate (principal); I10 Essential (primary) hypertension; E55.9 Vitamin D deficiency, unspecified; N40.0 Benign prostatic hyperplasia without lower urinary tract symptoms; E11.9 Type 2 diabetes mellitus without complications; E78.00 Pure hypercholesterolemia, unspecified
CPT/HCPCS: 36415; 80053; 80061; 81001; 82043; 82306; 83036; 83721; 84153; 84443; 85025

== ENCOUNTER 2022-11-06 08:11 | Outpatient (REF) | payer OTHER, SELFPAY ==
[2022-11-06 09:06] LABS: Estimated Average Glucose 146 mg/dL; Hemoglobin A1c % 6.7 %
[2022-11-06 09:43] LABS: Alanine Aminotransferase 39 U/L (0-40); Albumin Level 4.4 g/dL (3.5-5.0); Alkaline Phosphatase 89 U/L (39-117); Anion Gap 12 (12-20); Aspartate Amino Transferase 22 U/L (5-37); Bilirubin Total 0.5 mg/dL (0.0-1.0); Blood Urea Nitrogen 15 mg/dL (9-16); Calcium 9.3 mg/dL (8.4-10.2); Carbon Dioxide 28 mmol/L (22-29); Chloride 106 mmol/L (96-108); Cholesterol 170 mg/dL; Estimated Glomerular Filt Rate > 60; Glucose Random 151 mg/dL (60-115); HDL Cholesterol 53 mg/dL; LDL Cholesterol Calculated 97 mg/dl; Potassium 4.7 mmol/L (3.3-5.1); Sodium 141 mmol/L (135-145); Total Protein 7.3 g/dL (6.5-8.0); Triglycerides 102 mg/dL
[2022-11-06 10:00] LABS: Vitamin D 25-OH Total 28.8 ng/mL (>30)
[2022-11-06 13:39] LABS: Appearance Urine Clear; Color Urine Yellow; Glucose Urine UA >=1000 mg/dL (Negative); Leukocyte Esterase Urine Negative (Negative); Nitrite Urine Negative (Negative); Specific Gravity - Urine >= 1.030 (1.005-1.025); UMIC TRIGGER UACC YES; Urine Blood Negative (Negative); Urine Ketones Trace mg/dL (Negative); Urine Protein Negative (Neg-Trace)
[2022-11-06 13:47] LABS: Bacteria Urine None Seen (None Seen); Hyaline Casts Urine 0-2 /LPF (0-2); RBC Urine 0-2 /HPF (0-2); Squamous Epithelial Cell Urine 0-2 /HPF (0-2); WBC Urine 0-5 /HPF (0-5)
[2022-11-06 14:10] LABS: Creatinine Urine 161.14 mg/dL; Microalbum/Creatinine Ratio Ur 6.2 ug/mg cr
== END 2022-11-06 08:12 | disposition home or self-care (01) ==
LOC: HO.LAB 08:11
PROVIDERS: PCP Internal Medicine; Visit Provider Internal Medicine
DX: E11.9 Type 2 diabetes mellitus without complications (principal); E55.9 Vitamin D deficiency, unspecified
CPT/HCPCS: 36415; 80053; 80061; 81001; 82043; 82306; 83036

== ENCOUNTER → 2022-11-11 14:54 | Outpatient (BNVA) | payer OTHER, SELFPAY | PROVIDERS: PCP Internal Medicine; Visit Provider Internal Medicine | DX: E11.9 Type 2 diabetes mellitus without complications (principal) | CPT/HCPCS: 82947 ==

== ENCOUNTER 2023-01-02 07:34 | Outpatient (REF) | payer OTHER, SELFPAY ==
[2023-01-02 08:12] LABS: MANUAL DIFF FLAG NO
[2023-01-02 09:00] LABS: Basophils Absolute Auto 0.1 X10*3/uL (0.0-0.2); Basophils Percent Auto 1.4 % (0-2); Eosinophils Absolute Auto 0.4 X10*3/uL (0.0-0.4); Eosinophils Percent Auto 10.3 % (0-4); Hematocrit 44.1 % (42.0-52.0); Hemoglobin 14.9 g/dl (14.0-18.0); Imm Gran Abs Auto 0.01 X10*3/uL (0.00-0.03); Imm Gran Pct Auto 0.3 % (0.0-0.4); Lymphocytes Absolute Auto 1.3 X10*3/uL (1.2-4.9); Lymphocytes Percent Auto 38.5 % (20-40); Mean Corpuscular HGB Conc 33.8 g/dl (31.0-36.0); Mean Corpuscular Hemoglobin 29.4 pg (27.0-33.0); Monocytes Absolute Auto 0.3 X10*3/uL (0.1-1.2); Monocytes Percent Auto 8.3 % (2-11); Neutrophils Absolute Auto 1.4 x10*3/uL (2.0-8.3); Neutrophils Percent Auto 41.2 % (45-73); Platelet Count 239 X10*3/uL (160-400); Red Blood Count 5.07 X10*6/uL (4.60-5.80); Red Cell Distribution Width 12.7 % (11.0-16.0); White Blood Count 3.5 X10*3/uL (4.8-10.8)
[2023-01-02 09:04] LABS: Appearance Urine Clear; Color Urine Yellow; Glucose Urine UA >=1000 mg/dL (Negative); Leukocyte Esterase Urine Negative (Negative); Nitrite Urine Negative (Negative); Specific Gravity - Urine >= 1.030 (1.005-1.025); UMIC TRIGGER UACC YES; Urine Blood Negative (Negative); Urine Ketones Trace mg/dL (Negative); Urine Protein Negative (Neg-Trace)
[2023-01-02 09:11] LABS: Bacteria Urine None Seen (None Seen); Hyaline Casts Urine 0-2 /LPF (0-2); RBC Urine 0-2 /HPF (0-2); Squamous Epithelial Cell Urine 0-2 /HPF (0-2); WBC Urine 0-5 /HPF (0-5)
[2023-01-02 09:16] LABS: Estimated Average Glucose 137 mg/dL; Hemoglobin A1c % 6.4 %
[2023-01-02 09:36] LABS: Alanine Aminotransferase 22 U/L (0-40); Albumin Level 4.4 g/dL (3.5-5.0); Alkaline Phosphatase 74 U/L (39-117); Anion Gap 13 (12-20); Aspartate Amino Transferase 18 U/L (5-37); Bilirubin Total 0.6 mg/dL (0.0-1.0); Blood Urea Nitrogen 15 mg/dL (9-16); Calcium 9.6 mg/dL (8.4-10.2); Carbon Dioxide 27 mmol/L (22-29); Chloride 104 mmol/L (96-108); Cholesterol 165 mg/dL; Estimated Glomerular Filt Rate > 60; Glucose Fasting 145 mg/dL (60-99); HDL Cholesterol 58 mg/dL; LDL Cholesterol Calculated 96 mg/dl; Potassium 4.5 mmol/L (3.3-5.1); Sodium 139 mmol/L (135-145); Total Protein 7.4 g/dL (6.5-8.0); Triglycerides 58 mg/dL
[2023-01-02 10:01] LABS: Creatinine Urine 200.76 mg/dL; Microalbum/Creatinine Ratio Ur 4.9 ug/mg cr
[2023-01-02 10:05] LABS: TSH reflex Free T4 2.22 uIU/mL (0.32-4.0); Vitamin D 25-OH Total 34.7 ng/mL (>30)
== END 2023-01-02 07:35 | disposition home or self-care (01) ==
LOC: HO.LAB 07:34
PROVIDERS: PCP Internal Medicine; Visit Provider Internal Medicine
DX: I10 Essential (primary) hypertension (principal); E11.9 Type 2 diabetes mellitus without complications; E78.00 Pure hypercholesterolemia, unspecified; E55.9 Vitamin D deficiency, unspecified
CPT/HCPCS: 36415; 80053; 80061; 81001; 82043; 82306; 83036; 84443; 85025

== ENCOUNTER → 2023-02-12 13:05 | Outpatient (BNVA) | payer OTHER, SELFPAY | PROVIDERS: PCP Internal Medicine; Visit Provider Nurse Practitioner ==

== ENCOUNTER 2023-02-27 07:04 | Outpatient (REF) | payer OTHER, SELFPAY ==
[2023-02-27 08:04] LABS: Alanine Aminotransferase 28 U/L (0-40); Albumin Level 4.1 g/dL (3.5-5.0); Alkaline Phosphatase 83 U/L (39-117); Anion Gap 11 (12-20); Aspartate Amino Transferase 28 U/L (5-37); Bilirubin Total 0.4 mg/dL (0.0-1.0); Blood Urea Nitrogen 16 mg/dL (9-16); Calcium 9.7 mg/dL (8.4-10.2); Carbon Dioxide 29 mmol/L (22-29); Chloride 106 mmol/L (96-108); Cholesterol 137 mg/dL; Estimated Glomerular Filt Rate > 60; Glucose Fasting 120 mg/dL (60-99); HDL Cholesterol 47 mg/dL; LDL Cholesterol Calculated 76 mg/dl; Potassium 4.4 mmol/L (3.3-5.1); Sodium 142 mmol/L (135-145); Total Protein 7.3 g/dL (6.5-8.0); Triglycerides 71 mg/dL
== END 2023-02-27 07:05 | disposition home or self-care (01) ==
LOC: HO.LAB 07:04
PROVIDERS: PCP Internal Medicine; Visit Provider Internal Medicine
DX: I10 Essential (primary) hypertension (principal); E11.9 Type 2 diabetes mellitus without complications; E78.00 Pure hypercholesterolemia, unspecified
CPT/HCPCS: 36415; 80053; 80061; 83036; 85025

== ENCOUNTER 2023-03-04 13:04 | Outpatient (AMB) | payer OTHER, SELFPAY ==
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
== END 2023-03-04 16:29 | disposition home or self-care (01) ==
LOC: HO.ENCR 13:05
PROVIDERS: PCP Internal Medicine; Visit Provider Internal Medicine
DX: E11.9 Type 2 diabetes mellitus without complications (principal); I10 Essential (primary) hypertension; E78.5 Hyperlipidemia, unspecified
CPT/HCPCS: 99213

== ENCOUNTER → 2023-03-04 13:04 | Outpatient (BNVA) | payer OTHER, SELFPAY | PROVIDERS: PCP Internal Medicine; Visit Provider Internal Medicine ==

== ENCOUNTER 2023-06-25 10:43 | Day surgery (SDC) | payer OTHER, SELFPAY ==
[2023-06-23 11:40] VITALS: BMI 22.0
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
[2023-06-25 11:51] VITALS: BMI 23.5
[2023-06-25 12:09] VITALS: BP 143/75; PULSE 66; RESP 16; TEMP 36.7; O2SAT 98
[2023-06-25] MEDS: Lactated Ringers 1,000 ML 100 ML IVCONT (12:11)
[2023-06-25 12:15] LABS: Glucose, Whole Blood 115 mg/dL (60-115)
--- NOTE | 2023-06-25 12:54 | P.HPSUR_ITS ---
Pre-Procedural Eval Section A Date of Service: 06/25/23 The patient is an INPATIENT: No The History & Physical has been completed within 30 days and I have reviewed it.: No Section B Chief Complaint: surveillance for colon polyps, FH of colon cancer Relevant Family History (Specify if Yes): Yes Relevant Social History: None Present Medications: see Short Stay Collaborative assessment Medical History: Significant History (Diabetes mellitus Dyslipidemia Elevated LFTs GERD without esophagitis HLD (hyperlipidemia) HTN (hypertension) Insomnia Keratotic lesion Neuropathy Overweight (BMI 25.0-29.9) Pure hypercholesterolemia T2DM (type 2 diabetes mellitu) History of Previous Operations: Relevant previous surgery/procedure and date(s) (Hx of cholecystectomy Hx of circumcision) Allergies: Allergies Allergy/AdvReac Type Severity Reaction Status Date / Time Penicillins Allergy Unknown RASH/SOB Verified 06/25/23 11:56 Review of Systems Sugical H&P ROS: Negative: Constitution, Cardiovascular, Respiratory and Gas trointestinal Exam Surgical H&P Exam: Normal: Heart, Normal: Lungs, Normal: Extremities and Normal: Abdomen Plan Diagnosis/Plan: Unchanged I have reviewed the history and physical and performed a pertinent physical examination on my patient. No changes have occurred unless specified. Time Spent With Patient Time: Total time managing care of this patient today ____ minutes.
--- NOTE | 2023-06-25 13:22 | W.PM.OPN ---
Operative Note Operative Note Date of Service: 06/25/23 Narrative: COLONOSCOPY TILL CECUM WITH BIOPSIES Pre-op diagnosis: surveillance for colon polyps Post-op diagnosis:? diverticulosis, hemorrhoids Endoscopist:? Amanda Watson MD Anesthesia:?MAC Consent: Indications for the procedure and potential complications of bleeding, perforation, reaction to medications and missed diagnosis were discussed with the patient and informed consent was obtained. Instrument: Olympus PCF H 190 L variable stiffness pediatric colonoscope Monitoring: Vital signs and clinical assessment, intermittent blood pressure monitoring, continuous EKG monitoring, Pulse oximetry and Carbon Dioxide monitoring were done throughout the procedure. Please see anesthesia flowsheet. Colon withdrawl time was 14 minutes. Procedure: The patient was placed in the left lateral decubitis position and pre-procedure medications were administered. After a digital rectal examination of the ano-rectum, the video colonoscope was inserted into the rectum and advanced through the colon to the cecum. The colonoscope was slowly withdrawn in a retrograde panoramic fashion and the colon mucosa was carefully examined including a retroflexed view of the rectum. Findings and interventions are described below. Procedure Difficulty: Without difficulty Findings: Terminal Ileum: Not evaluated Cecum: Normal Ascending Colon: Patchy erythema scattered throughout the colon - random biopsies obtained. Transverse Colon: Patchy erythema scattered throughout the colon - random biopsies obtained Descending Colon: Patchy erythema scattered throughout the colon - random biopsies obtained Sigmoid Colon: Patchy erythema scattered throughout the colon - random biopsies obtained. Moderate diverticulosis Rectum: Normal Ano-rectum: Moderate internal hemorrhoids Colon preparation: Good after some irrigation Impression and Post Procedure Diagnosis: Colonoscopy Findings: No polyps were detected. Patchy erythema scattered throughout the colon - random biopsies were obtained from right and left colon. Moderate diverticulosis seen in the sigmoid colon Moderate hemorrhoids on retroflexed exam. Plan: Await pathology results Patient has an appointment on 07/09/23 in the [facility] with Bushra Schultz NP. Repeat Colonoscopy interval based on path results - in 5 years if biopsies are normal and due to a history of adenomatous colon polyps. Above findings were reviewed with the patient and diverticulosis handouts were given in the discharge area
[2023-06-25 13:55] VITALS: BP 97/61; PULSE 67; RESP 18; TEMP 36.3; O2SAT 100
[2023-06-25 14:10] VITALS: BP 115/64; PULSE 66; RESP 17; O2SAT 99
[2023-06-25 14:25] VITALS: BP 120/65; PULSE 65; RESP 18; TEMP 36.2; O2SAT 100
== END 2023-06-25 14:39 | disposition home or self-care (01) ==
PROVIDERS: PCP Internal Medicine; Visit Provider Internal Medicine Gastroenterology
PROC: 0DJD8ZZ Inspection of Lower Intestinal Tract, Via Natural or Artificial Opening Endoscopic (ICD-10-PCS; CPT 45378; principal; 2023-06-25 12:20)
DX: Z12.11 Encounter for screening for malignant neoplasm of colon (principal); Z86.010 Personal history of colon polyps; Z80.0 Family history of malignant neoplasm of digestive organs; K57.30 Diverticulosis of large intestine without perforation or abscess without bleeding; K64.8 Other hemorrhoids; K59.00 Constipation, unspecified; E78.00 Pure hypercholesterolemia, unspecified; K21.9 Gastro-esophageal reflux disease without esophagitis; Z87.19 Personal history of other diseases of the digestive system; I10 Essential (primary) hypertension; E11.40 Type 2 diabetes mellitus with diabetic neuropathy, unspecified; E55.9 Vitamin D deficiency, unspecified; E66.3 Overweight; Z68.21 Body mass index [BMI] 21.0-21.9, adult; M94.0 Chondrocostal junction syndrome [Tietze]; G47.00 Insomnia, unspecified; R79.89 Other specified abnormal findings of blood chemistry; Z88.0 Allergy status to penicillin; Z98.890 Other specified postprocedural states; Z79.899 Other long term (current) drug therapy
CPT/HCPCS: 45380; 82947; 88305

== ENCOUNTER → 2023-06-25 10:43 | Outpatient (BNV) | payer OTHER, SELFPAY | PROVIDERS: PCP Internal Medicine; Visit Provider Internal Medicine Gastroenterology | DX: Z12.11 Encounter for screening for malignant neoplasm of colon (principal); Z86.010 Personal history of colon polyps; K57.30 Diverticulosis of large intestine without perforation or abscess without bleeding; K64.8 Other hemorrhoids | CPT/HCPCS: 45380 ==

== ENCOUNTER 2023-07-09 11:48 | Outpatient (AMB) | payer OTHER, SELFPAY ==
[2023-07-09 11:51] VITALS: BP 133/69; PULSE 58; BMI 23.4
--- NOTE | 2023-07-09 11:51 | A.OFFVIS_ITS ---
Intake Vital Signs 07/09/23 11:51 Height 5 ft 4 in Weight 136 lb 3.931 oz BMI 23.4 BP 133/69 Blood Pressure Location Rt brachial Position Sitting Pulse 58 Intake Visit Reasons: s/p colon Walter Intake Note: Eder presents to in office visit today in colonoscopy follow up. CC: Patient reports doing well, denies having any GI concerns today. Inspector Tubes Required: Yes Inspector Tubes Name: Son Accompanied by: Son Allergies Penicillins Allergy (Unknown, Verified 07/30/23 15:06) RASH/SOB HPI s/p colon Walter HPI Details Assessment & Plan (1) Pre-op examination: Code(s): Z01.818 - Encounter for other preprocedural examination Plan: He had a TA on a prior scope 5 years ago. He only has slight relief with the senna 2 tabs will progress to bisacodyl. He is not taking anything for GErD or gastritis but feels well. There are no prior problems with anesthesia or sedation. He denies any cardiac or respiratory problems. No ID problems. He had a brother who has stage 5 CRC in 60's. (2) Tubular adenoma of colon: Code(s): D12.6 - Benign neoplasm of colon, unspecified (3) Hx of colonoscopy: Code(s): Z98.890 - Other specified postprocedural states (4) Constipation: Code(s): K59.00 - Constipation, unspecified Qualifiers: Constipation type: unspecified constipation type Qualified Code(s): K59.00 - Constipation, unspecified Medications: New peg 3350-electroly ravi 236-22.74-6.74 -5.86 gram (Golyt ilsa) until feca l effluent is jason r; do not exceed a total volume of 2 ,000 mL 240 mL PO Q10M 1 day 4,000 mL 0RF Z12.11 - Encounter for screening for malignant neoplas m of colon bisacodyl (Dulcola x (bisacodyl)) 10 mg (2 x 5 mg) P O BEDTIME 30 days 60 tabs 6RF K59.00 - Constipat ion, unspecifi COLONOSCOPY 06/25/23 Findings: Terminal Ileum: Not evaluated Cecum: Normal Ascending Colon: Patchy erythema scattered throughout the colon - random bi opsies obtained. Transverse Colon: Patchy erythema scattered throughout the colon - random biopsies obtained Descending Colon: Patchy erythema scattered throughout the colon - random biopsies obtained Sigmoid Colon: Patchy erythema scattered throughout the colon - random biopsies obtained. Moderate diverticulosis Rectum: Normal Ano-rectum: Moderate internal hemorrhoids Colon preparation: Good after some irrigation Impression and Post Procedure Diagnosis: Colonoscopy Findings: No polyps were detected. Patchy erythema scattered throughout the colon - random biopsies were obtained from right and left colon. Moderate diverticulosis seen in the sigmoid colon Moderate hemorrhoids on retroflexed exam. Plan: Await pathology results Patient has an appointment on 07/09/23 in the GI Clinic with Bushra Schultz NP. Repeat Colonoscopy interval based on path results - in 5 years if biopsies are normal and due to a history of adenomatous colon polyps. BIOPSY Received: 06/25/23 Diagnosis A. Colon, right, biopsy: Colonic mucosa with mild changes that raise the possibi lity of lymphocytic colitis (see comment). B. Colon, left, biopsy: Colonic mucosa with mild changes that raise the possibility of lymphocytic colitis, with few scattered neutrophils (see comment). Comment: This pattern of inflammation may be due to drugs, infections, diverticulitis, evolving autoimmune processes, and post-treatment inflammatory bowel disease. Clinical correlation is necessary. No organisms, cryptitis, or granulomas seen. TODAYS VISIT [employer] #Son translates per to request. He is agreeable to the 5 year follow. The procedure was well tolerated. The results were explained and the patient is agreeable to the follow-up interval as stated. Education was provided to tell any 1st degree relatives about their findings to be sure that they are screened by age 45. Educated that they will be put on a recall list when it is time for their repeat scope but should they move out of state or away from the hospital they will need to remember along with their primary to repeat the procedure in a timely fashion to avoid any adverse complications. He tells me that he has been having trouble for quite some time with his sto oling. His stools very hard and he has difficulty initiating the bowel movement. His bowel movements can be anywhere from every 2 days to week before he moves his bowels. He has tried fiber, and failed senna, bisacodyl, MiraLax and Colace due to insufficient response. He actively tries to get fiber in his diet and dislikes veggies but uses fiber in his yogurt and fiber 1 bars. He tried to drink water about 2-3 bottles a day 14-17 oz a day, so this is likely not enough. He has 2 cups of coffee in the am. Will try taking him to Lin[facility] and start 145 micro g and titrate. Return office visit in 4 weeks. [facility] Medical History Constipation Vitamin D deficiency HLD (hyperlipidemia) HTN (hypertension) T2DM (type 2 diabetes mellitus) Keratotic lesion Arthralgia Pure hypercholesterolemia Overweight (BMI 25.0-29.9) Insomnia Neuropathy GERD without esophagitis Elevated LFTs Dyslipidemia Diabetes mellitus Surgical History History of esophagogastroduodenoscopy (EGD) H/O colonoscopy Hx of circumcision Hx of cholecystectomy Family History Father Medical history unknown Mother Diabetes Hypertension Other Substance abuse Social History Housing: House Alcohol intake: current Alcohol intake frequency: holidays/special occasions only Patient Tobacco Use Status: Never used Tobacco e-Cigarette/Vaping Use: Never Used Second Hand Smoke Exposure: Yes service: No Current occupational status: employed 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 Cognitive needs: No Hearing needs: No Vision needs: No Review of Systems Const unobtainable due to endotracheal tube Denies fatigue, Denies fever(s), Denies night sweats, Denies poor appetite and Denies weight loss Eyes Details: glasses Reports requires corrective lenses ENT Reports Normal hearing present, Denies dental pain, Denies dysphagia, Denies hearing loss, Denies mouth pain, Denies odynophagia, Denies throat swelling, Denies tongue swelling and Reports other (Dentition adequate) Card Reports no additional complaints Resp Reports no additional complaints GI Denies abdominal pain, Denies melena, Reports bloating, Denies hematochezia, Reports constipation, Denies GI cramping, Denies dysphagia, Denies excessive flatus, Denies early satiety, Denies heartburn, Denies diarrhea, Denies nausea, Denies odynophagia, Denies vomiting and Denies hematemesis Skin/Breast Denies pruritus, Denies lesions, Denies rash and Denies jaundice Neuro Reports Normal hearing present and Denies Abnormal speech present Endo Denies fatigue Aller/Immun Denies throat swelling and Denies tongue swelling Physical Exam Vital Signs: Last Vital Signs Pulse 58 07/09/23 11:51 BP 133/69 07/09/23 11:51 BMI result Body Mass Index 23.4 Const General: cooperative, no acute distress, well developed and well groomed Nutritional Appearance: average body habitus and well nourished Orientation/consciousness: oriented to person, oriented to place and oriented to time Limitations: No language barrier HEENT Head: Yes normocephalic and Yes atraumatic Eyes General: appearance normal, both eyes and all related structures Pupils: Equal, round and reactive pupils present Neck Neck: Yes normal visual inspection and Yes no lymphadenopathy Thyroid: Thyroid normal Resp Effort & Inspection: normal respiratory effort and able to speak in complete sentences Auscultation: clear to auscultation bilaterally Cardio Rate: regular rate Rhythm: regular rhythm Heart sounds: Normal, physiologic split S2 sound present Peripheral pulses: radial pulses present and posterior tibial pulses present GI Inspection: No distended and No Abdominal panniculus present Palpation (GI): Soft to palpation, nontender, no guarding, not rigid and No hepatosplenomegaly present Percussion: Yes normal to percussion Auscultation: normal bowel sounds Rectal Exam - Male: Yes deferred Skin General skin exam: no rashes or lesions noted, turgor normal, skin not dry, no jaundice, No spider nevi and no striae Rashes: no rashes Nails: normal Neuro General: oriented to person, oriented to place and oriented to time Cranial nerves: Yes Equal, round and reactive pupils present and Yes Normal he aring present Speech: No Abnormal speech present Extrem General: Yes normal to inspection, No clubbing, No cyanosis and No edema Psych Appearance: grossly normal and well kempt Mental Status: mental status grossly normal Speech and movement: Normal speech and movement present Affect: normal affect Attitude: cooperative Thought process: Normal thought process present and not confabulating Thought content: Normal thought content present Insight: Fair insight present (Psych) Judgement: Fair judgement present (Psych) Results Reviewed Results Reviewed: COLONOSCOPY 06/25/23 Findings: Terminal Ileum: Not evaluated Cecum: Normal Ascending Colon: Patchy erythema scattered throughout the colon - random biopsies obtained. Transverse Colon: Patchy erythema scattered throughout the colon - random biopsies obtained Descending Colon: Patchy erythema scattered throughout the colon - random biopsies obtained Sigmoid Colon: Patchy erythema scattered throughout the colon - random biopsies obtained. Moderate diverticulosis Rectum: Normal Ano-rectum: Moderate internal hemorrhoids Colon preparation: Good after some irrigation Impression and Post Procedure Diagnosis: Colonoscopy Findings: No polyps were detected. Patchy erythema scattered throughout the colon - random biopsies were obtained from right and left colon. Moderate diverticulosis seen in the sigmoid colon Moderate hemorrhoids on retroflexed exam. Plan: Await pathology results Patient has an appointment on 07/09/23 in the GI Clinic with Bushra Schultz NP. Repeat Colonoscopy interval based on path results - in 5 years if biopsies are normal and due to a history of adenomatous colon polyps. BIOPSY Received: 06/25/23 Diagnosis A. Colon, right, biopsy: Colonic mucosa with mild changes that raise the possibility of lymphocytic colitis (see comment). B. Colon, left, biopsy: Colonic mucosa with mild changes that raise the possibility of lymphocytic colitis, with few scattered neutrophils (see comment). Comment: This pattern of inflammation may be due to drugs, infections, diverticulitis, evolving autoimmune processes, and post-treatment inflammatory bowel disease. Clinical correlation is necessary. No organisms, cryptitis, or granulomas seen. Assessment & Plan Assessment & Plan (1) Lymphocytic colitis: Code(s): K52.832 - Lymphocytic colitis (2) Tubular adenoma of colon: Code(s): D12.6 - Benign neoplasm of colon, unspecified (3) Chronic idiopathic constipation: Code(s): K59.04 - Chronic idiopathic constipation Plan [employer] #Son translates per to request. He is agreeable to the 5 year follow. The procedure was well tolerated. The results were explained and the patient is agreeable to the follow-up interval as stated. Education was provided to tell any 1st degree relatives about their findings to be sure that they are screened by age 45. Educated that they will be put on a recall list when it is time for their repeat scope but should they move out of state or away from the hospital they will need to remember along with their primary to repeat the procedure in a timely fashion to avoid any adverse complications. He tells me that he has been having trouble for quite some time with his stooling. His stools very hard and he has difficulty initiating the bowel movement. His bowel movements can be anywhere from every 2 days to week before he moves his bowels. He has tried fiber, and failed senna, bisacodyl, MiraLax and Colace due to insufficient response. He actively tries to get fiber in his diet and dislikes veggies but uses fiber in his yogurt and fiber 1 bars. He tried to drink water about 2-3 bottles a day 14-17 oz a day, so this is likely not enough. He has 2 cups of coffee in the am. Will try taking him to [facility] and start 145 micro g and titrate. Return office visit in 4 weeks. Medications: New linaclotide (Linzess) 145 mcg PO QAM 30 caps 6RF K59.04 - Chronic idiopathic constipation Discontinued sennosides Discontinued Reason: Doctor's Order 17.2 mg (2 x 8.6 mg) PO BEDTIME 30 days PRN 60 tabs 5RF constipation Coding Level of Care Code Est Pt Level 4 (74163) Diagnoses Lymphocytic colitis K52.832 Tubular adenoma of colon D12.6 Chronic idiopathic constipation K59.04
== END 2023-07-09 12:18 | disposition home or self-care (01) ==
PROVIDERS: PCP Internal Medicine; Visit Provider Nurse Practitioner
DX: K52.832 Lymphocytic colitis (principal); D12.6 Benign neoplasm of colon, unspecified; K59.04 Chronic idiopathic constipation
CPT/HCPCS: 99214

== ENCOUNTER → 2023-07-09 11:48 | Outpatient (BNVA) | payer OTHER, SELFPAY | PROVIDERS: PCP Internal Medicine; Visit Provider Nurse Practitioner ==

== ENCOUNTER 2023-07-24 09:47 | Outpatient (REF) | payer OTHER, SELFPAY ==
[2023-07-24 10:08] LABS: MANUAL DIFF FLAG NO
[2023-07-24 10:50] LABS: Basophils Percent Auto 1.1 % (0-2); Eosinophils Absolute Auto 0.3 X10*3/uL (0.0-0.4); Eosinophils Percent Auto 8.4 % (0-4); Hematocrit 40.3 % (42.0-52.0); Hemoglobin 13.6 g/dl (14.0-18.0); Imm Gran Abs Auto 0.01 X10*3/uL (0.00-0.03); Imm Gran Pct Auto 0.3 % (0.0-0.4); Lymphocytes Absolute Auto 1.5 X10*3/uL (1.2-4.9); Lymphocytes Percent Auto 40.5 % (20-40); Mean Corpuscular HGB Conc 33.7 g/dl (31.0-36.0); Mean Corpuscular Hemoglobin 30.2 pg (27.0-33.0); Mean Corpuscular Volume 89.4 fL (80.0-98.0); Mean Platelet Volume 9.1 fL (9.4-12.4); Monocytes Absolute Auto 0.3 X10*3/uL (0.1-1.2); Monocytes Percent Auto 8.2 % (2-11); Neutrophils Absolute Auto 1.5 x10*3/uL (2.0-8.3); Neutrophils Percent Auto 41.5 % (45-73); Platelet Count 241 X10*3/uL (160-400); Red Blood Count 4.51 X10*6/uL (4.60-5.80); Red Cell Distribution Width 12.9 % (11.0-16.0); White Blood Count 3.7 X10*3/uL (4.8-10.8)
[2023-07-24 11:00] LABS: Appearance Urine Clear; Color Urine Yellow; Glucose Urine UA Negative (Negative); Leukocyte Esterase Urine Negative (Negative); Nitrite Urine Negative (Negative); Specific Gravity - Urine 1.025 (1.005-1.025); Urine Blood Negative (Negative); Urine Ketones Negative (Negative); Urine Protein Negative (Neg-Trace)
[2023-07-24 11:00] LABS: Estimated Average Glucose 148 mg/dL; Hemoglobin A1c % 6.8 % (<6.0)
[2023-07-24 11:09] LABS: Creatinine Urine 241.27 mg/dL; Microalbum/Creatinine Ratio Ur 4.9 ug/mg cr (<30)
[2023-07-24 11:22] LABS: Alanine Aminotransferase 19 U/L (0-40); Albumin Level 4.3 g/dL (3.5-5.0); Alkaline Phosphatase 62 U/L (39-117); Anion Gap 12 (12-20); Aspartate Amino Transferase 18 U/L (5-37); Bilirubin Total 0.7 mg/dL (0.0-1.0); Blood Urea Nitrogen 15 mg/dL (9-16); Calcium 9.4 mg/dL (8.4-10.2); Carbon Dioxide 27 mmol/L (22-29); Chloride 105 mmol/L (96-108); Cholesterol 150 mg/dL (<200); Estimated Glomerular Filt Rate > 60; Glucose Fasting 135 mg/dL (60-99); HDL Cholesterol 52 mg/dL (>40); LDL Cholesterol Calculated 84 mg/dL (<100); Potassium 4.1 mmol/L (3.3-5.1); Sodium 140 mmol/L (135-145); Total Protein 7.6 g/dL (6.5-8.0); Triglycerides 72 mg/dL (<150)
[2023-07-24 11:40] LABS: TSH reflex Free T4 1.68 uIU/mL (0.32-4.0); Vitamin D 25-OH Total 25.7 ng/mL (>30)
== END 2023-07-24 09:48 | disposition home or self-care (01) ==
LOC: HO.LAB 09:47
PROVIDERS: PCP Internal Medicine; Visit Provider Internal Medicine
DX: E78.00 Pure hypercholesterolemia, unspecified (principal); E11.9 Type 2 diabetes mellitus without complications; R30.0 Dysuria; I10 Essential (primary) hypertension; E55.9 Vitamin D deficiency, unspecified
CPT/HCPCS: 36415; 80053; 80061; 81003; 82043; 82306; 82570; 83036; 84443; 85025

== ENCOUNTER 2023-07-30 14:32 | Outpatient (AMB) | payer OTHER, SELFPAY ==
[2023-07-30 14:34] VITALS: BP 126/74; PULSE 61; O2SAT 98; BMI 23.0
--- NOTE | 2023-07-30 14:34 | A.OFFPC_ITS ---
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 Required: No Accompanied by: Self / Same As Patient Allergies Penicillins Allergy (Unknown, Verified 07/30/23 15:06) RASH/SOB Medication List - Last Reconciled 07/30/23 by Viktor Damon MD atorvastatin 40 mg PO DAILY blood sugar diagnostic (FreeStyle Lite Strips) USE TO TEST BLOOD SUGAR 3 TIMES A DAY blood-glucose meter,continuous ([employer] G7 Records Section Supervisor) As directed blood-glucose sensor (Dex[employer]ega[employer] G7 Sensor device) every 10 days empagliflozin (Jardiance) 25 mg PO DAILY gabapentin 100 mg PO DAILY insulin glargine U-300 conc (Toujeo SoloStar U-300 Insulin) 40 units (0.1333 mL) subcut BEDTIME insulin lispro (Humalog KwikPen (U-100) Insulin) 25 units (0.25 mL) subcut TID 30 days lancets As directed linaclotide (Linzess) 145 mcg PO QAM losartan 25 mg PO DAILY pioglitazone 30 mg PO DAILY semaglutide (Ozempic) 1 mg (0.75 mL) subcut QWEEK 30 days tramadol 50 mg PO Q8H PRN 30 days Tobacco use date assessed: 07/30/23 Dental Screening Dental Screen Date: 07/30/23 Did you have a dental visit in the last 12 months?: Yes Did you have a dental problem in the last 6 months where you did not have access to dental care?: No Was dental information given to patient?: Patient has dentist HPI 4M DM, hyperlipidemia, elevated LFTs, neuropathy HPI Details Patient comes in today for his follow up visit States that he feels okay He denies any headaches or dizziness Denies any chest pains, no SOB No nausea/vomiting, no abdominal pain No change in bowel habits noted Had his follow up labs done last week - to discuss his results [facility] Medical History Constipation Vitamin D deficiency HLD (hyperlipidemia) HTN (hypertension) T2DM (type 2 diabetes mellitus) Keratotic lesion Arthralgia Pure hypercholesterolemia Overweight (BMI 25.0-29.9) Insomnia Neuropathy GERD without esophagitis Elevated LFTs Dyslipidemia Diabetes mellitus Surgical History History of esophagogastroduodenoscopy (EGD) H/O colonoscopy Hx of circumcision Hx of cholecystectomy Family History Father Medical history unknown Mother Diabetes Hypertension Other Substance abuse Social History Housing: House Alcohol intake: current Alcohol intake frequency: holidays/special occasions only Patient Tobacco Use Status: Never used Tobacco e-Cigarette/Vaping Use: Never Used Second Hand Smoke Exposure: Yes service: No Current occupational status: employed 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 1. Little interest or pleasure in doing things: not at all 2. Feeling down, depressed, or hopeless: not at all 3. Trouble falling or staying asleep, or sleeping too much: not at all 4. Feeling tired or having little energy: not at all 5. Poor appetite or overeating: not at all 6. Feeling bad about yourself - or that you are a failure or have let yourself or your family down: not at all 7. Trouble concentrating on things, such as reading the newspaper or watching television: not at all 8. Moving or speaking so slowly that other people could have noticed. Or the opposite - being so fidgety or restless that you have been moving around a lot more than usual: not at all 9. Thoughts that you would be better off or of hurting yourself in some way: not at all Total score: 0 Depression Screening Interpretation: Negative Depression Screening Done: Yes 22679 - PHQ-9 Billing: Yes Source: Developed by Drs. Efe Hernandez, Chanel Antoine, Kwame Ruiz and colleagues, with an educational sue from [employer]. Thrive Questionnaire Date Thrive assessed: 07/30/23 I am a: Patient What is your living situation today?: I have a steady place to live Within the past 12 months, did the food you bought not last and you didn't have the money to get more?: Never true Within the past 12 months, did you worry whether your food would run out before you got money to buy more?: Never true Do you have trouble paying for medicines?: No Do you have trouble getting transportation to medical appointments?: No Do you have trouble paying your heating and electricity bill?: No Do you have trouble taking care of your child, family member or friend?: No Do you have trouble with day-to-day activities such as bathing, preparing meals, shopping, managing finances, etc.?: No Are you currently unemployed and looking for a job?: No Are you interested in more education?: No Please select the resources that you would like help with: None Currently or been in a relationship where the following occur: no concerns reported AUDIT C Alcohol Use Questionnaire (AUDIT-C) 1. How often do you have a drink containing alcohol?: Monthly or less 2. How many drinks containing alcohol do you have on a typical day when you are drinking?: 1 or 2 3. How often do you have six or more drinks on one occasion?: Never Total Score: 1 Score Reviewed/Action Taken: Yes PHIL-7 AMB Questionnaire PHIL-7 Date PHIL - 7 assessed: 07/30/23 Feeling nervous, anxious, or on edge: 0 = Not at all Not being able to stop or control worryin = Not at all Worrying too much about different things: 0 = Not at all Trouble relaxin = Not at all Being so restless that it is hard to sit still: 0 = Not at all Becoming easily annoyed or irritable: 0 = Not at all Feeling afraid as if something awful might happen: 0 = Not at all Total PHIL-7 score (0-4 normal; 5-9 mild; 10-14 moderate; 15-21 severe): 0 Source: Developed by Drs. Efe Hernandez, Chanel Antoine, Kwame Ruiz and colleagues, with an educational sue from [employer]. Review of Systems Const Denies fatigue, Denies fever(s) and Denies headache(s) ENT Denies dysphagia, Denies dizziness, Denies otalgia, Denies headache(s), Denies neck pain, Denies odynophagia and Denies sore throat Card Denies chest pain, Denies palpitations and Denies dyspnea Resp Denies chest congestion, Denies cough and Denies dyspnea GI Denies abdominal pain, Reports constipation (on and off), Denies dysphagia, Denies heartburn, Denies diarrhea, Denies nausea, Denies odynophagia and Denies vomiting Denies dysuria, Denies nocturia and Denies urinary frequency Musc Denies back pain and Denies neck pain Skin/Breast Denies rash Neuro Denies dizziness and Denies headache(s) Endo Denies fatigue and Denies palpitations Physical exam (Primary Care) Vital Signs: Last Vital Signs Pulse 61 07/30/23 14:34 BP 126/74 07/30/23 14:34 Pulse Ox 98 07/30/23 14:34 Oxygen Delivery Method Room Air 07/30/23 14:34 BMI result Body Mass Index 23.0 Tobacco/Smoking Status: Tobacco use Status Tobacco use date assessed 07/30/23 07/30/23 14:40 Patient Tobacco Use Status Never used Tobacco 07/30/23 14:40 e-Cigarette/Vaping Use Never Used 07/30/23 14:40 PHQ-9: PHQ-9 Score PHQ-9: Total score 0 07/30/23 15:03 Depression Screening Interpretation: Negative Thrive Assessment: Date of Thrive Assessment Date Thrive assessed 07/30/23 07/30/23 14:40 Currently or been in a relationship where the following occur: no concerns reported Const General: no acute distress and alert HENMT Ears: TM's normal bilaterally and EAC's normal Throat: Yes posterior oropharynx normal and Yes tonsils normal (no TP congestion noted) Neck Neck: Yes no lymphadenopathy and Yes supple Resp Auscultation: clear to auscultation bilaterally, no rales and no wheezes Cardio Rate: regular rate Rhythm: regular rhythm Heart sounds: no murmurs GI Palpation (GI): Soft to palpation and nontender Auscultation: normal bowel sounds Extrem General: Yes no clubbing, cyanosis or edema Results Reviewed Results Reviewed: Laboratory Tests 07/24/23 07/24/23 10:07 10:40 WBC 3.7 L Hgb 13.6 L Hct 40.3 L Plt Count 241 Sodium 140 Potassium 4.1 Creatinine 0.81 Estimated GFR > 60 Fasting Glucose 135 H Hemoglobin A1c % 6.8 H Calcium 9.4 AST 18 ALT 19 Triglycerides 72 Cholesterol 150 LDL Cholesterol, Calc 84 HDL Cholesterol 52 25-OH Vitamin D Total 25.7 L TSH 1.68 Ur Specific Sulphur 1.025 Urine Protein Negative Urine Glucose (UA) Negative Urine Blood Negative Microalb/Creat Ratio 4.9 Assessment and Plan Assessment & Plan (1) Diabetes mellitus: Code(s): E11.9 - Type 2 diabetes mellitus without complications Qualifiers: Diabetes mellitus complication detail: with polyneuropathy Diabetes mellitus complication status: with neurologic complications Diabetes mellitus alf insulin use: with meterman use Diabetes mellitus type: type 2 Qualified Code(s): E11.42 - Type 2 diabetes mellitus with diabetic polyneuropathy; Z79.4 - correction (current) use of insulin Plan: Patient's HgbA1c has increased slightly to 6.8% on his labs done last week (was at 6.4% a few months ago) - goal is < 7.0% Reinforced diabetic diet Continue Jardiance 25 mg QD, Toujeo 40 units daily and Humalog 25 units 3 times a day with meals dosed per sliding scale and Pioglitazone 30 mg QD He is also currently on Ozempic 1 mg SQ once a week but states that he was out of his Ozempic for a couple of weeks recently as it was not available at his pharmacy and this may be the reason why his HgbA1c increased slightly on his recent labs Follow up with endocrinology as scheduled Is also on Losartan 25 mg QD for renoprotection - was previously on Lisinopril 2.5 mg QD but due to his recurrent cough, he was switched over to Losartan - his cough has since resolved (2) Pure hypercholesterolemia: Code(s): E78.00 - Pure hypercholesterolemia, unspecified Plan: Results of his labs done last week reviewed and discussed with patient Reinforced low cholesterol diet Continue Atorvastatin 40 mg QD Will recheck his labs and fasting lipids in 4 months for follow up (3) Elevated LFTs: Code(s): R79.89 - Other specified abnormal findings of blood chemistry Plan: Resolved - LFTs remain normal on his follow up labs done last week Will continue to monitor his LFTs regularly (4) GERD without esophagitis: Code(s): K21.9 - Gastro-esophageal reflux disease without esophagitis Plan: Dietary restrictions reinforced (5) Constipation: Code(s): K59.00 - Constipation, unspecified Qualifiers: Constipation type: unspecified constipation type Qualified Code(s): K59.00 - Constipation, unspecified Plan: Improved - encouraged increased oral fluids and dietary fiber Continue Linzess 145 mcg QD and Senna 8.6 mg 1 to 2 tablets Q HS PRN (6) Hyperkalemia: Code(s): E87.5 - Hyperkalemia Plan: Resolved; serum potassium level has remained normal on his recent labs (7) Neuropathy: Code(s): G62.9 - Polyneuropathy, unspecified Plan: EMG and NCV done on 09/02/2017 revealed (+)? mild sensory and motor, axonal and chronic peripheral neuropathy and mild to moderate bilateral distal tibial neuropathy across the tarsal tunnel Emphasize again the importance of strict glycemic control to help slow down the progression of his neuropathy Continue Gabapentin 100 mg Q HS and Tramadol 50 mg TID PRN for pain (8) Vitamin D deficiency: Code(s): E55.9 - Vitamin D deficiency, unspecified Plan: Corrected - continue Vitamin D3 2000 units QD (9) Insomnia: Code(s): G47.00 - Insomnia, unspecified Qualifiers: Insomnia type: unspecified Qualified Code(s): G47.00 - Insomnia, unspecified Plan: Sleep hygiene reinforced Used to take Trazodone 50 mg once a day at bedtime as needed but not lately Plan Follow up in 4 months Orders: Orders Complete Blood Count Auto Diff 4 Months I10 - Essential (primary) hypertension Comprehensive [place]. Panel Fast 4 Months E78.00 - Pure hypercholesterolemia, unspecified Lipid Panel 4 Months E78.00 - Pure hypercholesterolemia, unspecified Hemoglobin A1c 4 Months E11.9 - Type 2 diabetes mellitus without complications Microalbumin, Random (w Creat) 4 Months E11.9 - Type 2 diabetes mellitus without complications TSH reflex Free T4 4 Months E78.00 - Pure hypercholesterolemia, unspecified UA CC w/rflx Micro + Cult 4 Months R30.0 - Dysuria Vitamin D 25-OH Total 4 Months E55.9 - Vitamin D deficiency, unspecified Review Flu Vaccine not done: patient reason (patient declined) Coding Level of Care Code Est Pt Level 4 (40922) Diagnoses Type 2 diabetes mellitus with diabetic polyneuropathy, with long-term current use of insulin E11.42; Z79.4 Diabetes mellitus complication detail: with polyneuropathy Diabetes mellitus complication status: with neurologic complications Diabetes mellitus meterman insulin use: with alf use Diabetes mellitus type: type 2 Pure hypercholesterolemia E78.00 Elevated LFTs R79.89 GERD without esophagitis K21.9 Constipation, unspecified constipation type K59.00 Constipation type: unspecified constipation type Hyperkalemia E87.5 Neuropathy G62.9 Vitamin D deficiency E55.9 Insomnia, unspecified type G47.00 Insomnia type: unspecified
== END 2023-07-30 15:09 | disposition home or self-care (01) ==
PROVIDERS: PCP Internal Medicine; Visit Provider Internal Medicine
DX: E11.42 Type 2 diabetes mellitus with diabetic polyneuropathy (principal); Z79.4 Long term (current) use of insulin; E78.00 Pure hypercholesterolemia, unspecified; R79.89 Other specified abnormal findings of blood chemistry; K21.9 Gastro-esophageal reflux disease without esophagitis; K59.00 Constipation, unspecified; E87.5 Hyperkalemia; G62.9 Polyneuropathy, unspecified; E55.9 Vitamin D deficiency, unspecified; G47.00 Insomnia, unspecified
CPT/HCPCS: 99214

== ENCOUNTER 2023-10-06 14:28 | Outpatient (AMB) | payer OTHER, SELFPAY ==
[2023-10-06 14:33] VITALS: BP 132/66; PULSE 58; BMI 23.7
--- NOTE | 2023-10-06 14:33 | A.OFFVIS_ITS ---
Intake Vital Signs 10/06/23 14:33 Height 5 ft 4 in Weight 138 lb 0.15 oz BMI 23.7 BP 132/66 Blood Pressure Location Lt brachial Position Sitting Pulse 58 Pulse Source Pulse Oximeter Intake Visit Reasons: DM2-confirmed Intake Note: New patient to Dr. Bender present today for Type 2 Diabetes Mellitus. Previously followed by Dr. Hernandez. Last Diabetic Eye exam: 08/2022 Last Podiatry Visit:None Random Glucose: 101 mg/dl HgA1C: 6.8% 07/24/23 Radiologic Technology Program Director Required: Yes Radiologic Technology Program Director Language: Vp Genetic Name: Basilio huston Information Interpreted: non-clinical & clinical Accompanied by: Son Allergies Penicillins Allergy (Unknown, Verified 10/06/23 14:40) RASH/SOB Medication List - Last Reconciled 10/06/23 by Efe Bender MD atorvastatin 40 mg PO DAILY blood sugar diagnostic (FreeStyle Lite Strips) USE TO TEST BLOOD SUGAR 3 TIMES A DAY blood-glucose meter,continuous ([employer] G7 Last Puller) As directed blood-glucose sensor ([employer] G7 Sensor device) every 10 days empagliflozin (Jardiance) 25 mg PO DAILY gabapentin 100 mg PO DAILY insulin glargine U-300 conc (Toujeo SoloStar U-300 Insulin) 40 units (0.1333 mL) subcut BEDTIME insulin lispro (Humalog KwikPen (U-100) Insulin) 25 units (0.25 mL) subcut TID 30 days lancets As directed linaclotide (Linzess) 145 mcg PO QAM losartan 25 mg PO DAILY pioglitazone 30 mg PO DAILY semaglutide (Ozempic) 1 mg (0.75 mL) subcut QWEEK 30 days tramadol 50 mg PO Q8H PRN 30 days HPI HPI Comments History of Present Illness Details 55 YO M with PMHx T2DM who is seen in F/U for T2DM. Patient last saw Dr. Hernandez on 03/04/2023 Was initially started on treatment with Metformin. Current regimen Jardiance 25 mg PO daily, pioglitazone 30 mg PO daily stopped , Ozempic 1.0 mg once a week, Toujeo 20 units qHS with a Humalog sliding scale. He has been off of the ozempic for 3 weeks due to issues with his insurance. He was unable to tolerate Metformin due to GI distress. Glucometer download shows she is checking his point cares 1 to 2 times a day. Average glucose is 132 with 89% range 11% hyperglycemia and no hypoglycemia Reports low sugars rarely, just a few times in the past. Treats lows with sugary drinks or food. Has hypoglycemia awareness. . Family history of T2DM in his Mother and Siblings. Has eyes checked yearly. Last eye exam 1 yr ago , no retinopathy. Needs to amke appt Has neuropathy, uses Gabapentin 100 mg PO daily. Does not see podiatry. Denies nephropathy, on Lisinopril 2.5 mg daily. UAC 6.2 11/06/2022. Has HLD, on Atorvastatin 40 mg PO daily. Last LDL 97 11/06/2022. Denies CAD. Diet: Does not watch carbs. Weight: Has lost 20 lbs since starting Ozempic. Had diabetes education. Labs: Laboratory Tests 11/06/22 11/06/22 11/06/22 08:23 08:23 11:15 Sodium 141 Potassium 4.7 Creatinine 0.98 Estimated GFR > 60 Hemoglobin A1c % 6.7 LDL Cholesterol, C alc 97 Microalb/Creat Rat io 6.2 PFSH Medical History Constipation Vitamin D deficiency HLD (hyperlipidemia) HTN (hypertension) T2DM (type 2 diabetes mellitus) Keratotic lesion Arthralgia Pure hypercholesterolemia Overweight (BMI 25.0-29.9) Insomnia Neuropathy GERD without esophagitis Elevated LFTs Dyslipidemia Diabetes mellitus Surgical History History of esophagogastroduodenoscopy (EGD) H/O colonoscopy Hx of circumcision Hx of cholecystectomy Family History Father Medical history unknown Mother Diabetes Hypertension Other Substance abuse Social History Housing: House Alcohol intake: current Alcohol intake frequency: holidays/special occasions only Patient Tobacco Use Status: Never used Tobacco e-Cigarette/Vaping Use: Never Used Second Hand Smoke Exposure: Yes service: No Current occupational status: employed 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 Absence of acromegalic features. Neck exam reveals nl size thyroid about 15 gms. No thyroid nodules palpable. No carotid bruits present. Lungs CTA. Heart S1 S2, Reg R/R. No M/R/ G. Skin exam reveals absence of vitiligo or acanthosis nigricans. Abdominal exam reveals Soft NT/ND with NA BS. No organomegaly present. Neck Other: . Extrem Other: Visual exam of foot performed. No ulcerations or open lesions. No onchomycosis, no callouses.Pulses 2 + distally Sensation intact to monofilament exam. Vibratory sensation sensed is intact with 128 Hz tuning fork Results Reviewed Results Reviewed: Laboratory Last Values Glucose (Clinic) 101 mg/dL (60-115) 10/06/23 14:42 Assessment & Plan Assessment & Plan (1) T2DM (type 2 diabetes mellitus): Code(s): E11.9 - Type 2 diabetes mellitus without complications Plan: This is a 57-year-old male with a history of type 2 diabetes being treated with Jardiance, , Ozempic and basal insulin- bolus with excellent glycemic control and known microvascular complications namely neuropathy. Plan is to continue the current regimen. At this point, patient returned back to the care of his primary care provider and returned back to endocrinology should his HbA1c deteriorate Coding Level of Care Code Est Pt Level 4 (32849) Diagnoses T2DM (type 2 diabetes mellitus) E11.9
[2023-10-06 14:46] LABS: Glucose, Whole Blood 101 mg/dL (60-115)
== END 2023-10-06 15:14 | disposition home or self-care (01) ==
PROVIDERS: PCP Internal Medicine; Visit Provider Internal Medicine Endocrinology, Diabetes & Metabolism
DX: E11.9 Type 2 diabetes mellitus without complications (principal)
CPT/HCPCS: 99214

== ENCOUNTER → 2023-10-06 14:28 | Outpatient (BNVA) | payer OTHER, SELFPAY | PROVIDERS: PCP Internal Medicine; Visit Provider Internal Medicine Endocrinology, Diabetes & Metabolism | DX: E11.9 Type 2 diabetes mellitus without complications (principal); Z79.4 Long term (current) use of insulin | CPT/HCPCS: 82947 ==

== ENCOUNTER 2023-12-03 10:31 | Outpatient (REF) | payer OTHER, SELFPAY ==
[2023-12-03 10:52] LABS: MANUAL DIFF FLAG NO
[2023-12-03 12:18] LABS: Basophils Absolute Auto 0.1 X10*3/uL (0.0-0.2); Basophils Percent Auto 1.7 % (0-2); Eosinophils Absolute Auto 0.3 X10*3/uL (0.0-0.4); Eosinophils Percent Auto 7.1 % (0-4); Hematocrit 39.5 % (42.0-52.0); Hemoglobin 13.9 g/dl (14.0-18.0); Imm Gran Abs Auto 0.01 X10*3/uL (0.00-0.03); Imm Gran Pct Auto 0.3 % (0.0-0.4); Lymphocytes Absolute Auto 1.3 X10*3/uL (1.2-4.9); Lymphocytes Percent Auto 36.7 % (20-40); Mean Corpuscular HGB Conc 35.2 g/dl (31.0-36.0); Mean Corpuscular Hemoglobin 30.3 pg (27.0-33.0); Mean Corpuscular Volume 86.2 fL (80.0-98.0); Mean Platelet Volume 8.8 fL (9.4-12.4); Monocytes Absolute Auto 0.3 X10*3/uL (0.1-1.2); Monocytes Percent Auto 7.3 % (2-11); Neutrophils Absolute Auto 1.7 x10*3/uL (2.0-8.3); Neutrophils Percent Auto 46.9 % (45-73); Platelet Count 267 X10*3/uL (160-400); Red Blood Count 4.58 X10*6/uL (4.60-5.80); White Blood Count 3.5 X10*3/uL (4.8-10.8)
[2023-12-03 12:49] LABS: Appearance Urine Clear; Color Urine Yellow; Glucose Urine UA Negative (Negative); Leukocyte Esterase Urine Negative (Negative); Nitrite Urine Negative (Negative); PH 6.5 (5.0-9.0); Urine Blood Negative (Negative); Urine Ketones Negative (Negative); Urine Protein Negative (Neg-Trace)
[2023-12-03 13:19] LABS: Alanine Aminotransferase 17 U/L (0-40); Albumin Level 4.3 g/dL (3.5-5.0); Alkaline Phosphatase 65 U/L (39-117); Anion Gap 11 (12-20); Aspartate Amino Transferase 18 U/L (5-37); Bilirubin Total 0.8 mg/dL (0.0-1.0); Blood Urea Nitrogen 12 mg/dL (9-16); Calcium 9.6 mg/dL (8.4-10.2); Carbon Dioxide 25 mmol/L (22-29); Chloride 106 mmol/L (96-108); Cholesterol 166 mg/dL (<200); Estimated Glomerular Filt Rate > 60; Glucose Fasting 108 mg/dL (60-99); HDL Cholesterol 62 mg/dL (>40); LDL Cholesterol Calculated 90 mg/dL (<100); Sodium 138 mmol/L (135-145); Total Protein 7.8 g/dL (6.5-8.0); Triglycerides 73 mg/dL (<150)
[2023-12-03 13:21] LABS: TSH reflex Free T4 1.94 uIU/mL (0.32-4.0); Vitamin D 25-OH Total 16.6 ng/mL (>30)
[2023-12-03 13:44] LABS: Creatinine Urine 168.76 mg/dL; Microalbum/Creatinine Ratio Ur 4.1 ug/mg cr (<30)
[2023-12-03 15:00] LABS: Estimated Average Glucose 146 mg/dL; Hemoglobin A1c % 6.7 % (<6.0)
== END 2023-12-03 10:32 | disposition home or self-care (01) ==
LOC: HO.LAB 10:31
PROVIDERS: PCP Internal Medicine; Visit Provider Internal Medicine
DX: E11.9 Type 2 diabetes mellitus without complications (principal); I10 Essential (primary) hypertension; E78.00 Pure hypercholesterolemia, unspecified; E55.9 Vitamin D deficiency, unspecified; R30.0 Dysuria
CPT/HCPCS: 36415; 80053; 80061; 81003; 82043; 82306; 82570; 83036; 84443; 85025

== ENCOUNTER 2023-12-10 14:23 | Outpatient (AMB) | payer OTHER, SELFPAY ==
[2023-12-10 14:25] VITALS: BP 112/60; PULSE 60; O2SAT 97; BMI 23.0
--- NOTE | 2023-12-10 14:25 | MHC.PC.OV ---
Vital Signs 12/10/23 14:25 Height 5 ft 4 in Weight 134 lb 0.2 oz BMI 23.0 BP 112/60 Blood Pressure Location Lt brachial Position Sitting Pulse 60 Pulse Source Pulse Oximeter Pulse Oximetry (%) 97 Oxygen Delivery Method Room Air Intake Visit Reasons: 4 month f/u Intake Note: Patient is here to follow up 4 month Assistant Restaurant General Manager Required: No Allergies Penicillins Allergy (Unknown, Verified 12/10/23 14:57) RASH/SOB Medication List - Last Reconciled 12/10/23 by Viktor Damon MD atorvastatin 40 mg PO DAILY blood sugar diagnostic (FreeStyle Lite Strips) USE TO TEST BLOOD SUGAR 3 TIMES A DAY blood-glucose meter,continuous (Broadcastr G7 Edging Catcher) As directed blood-glucose sensor (Dexcom G7 Sensor device) every 10 days empagliflozin (Jardiance) 25 mg PO DAILY gabapentin 100 mg PO DAILY insulin glargine U-300 conc (Toujeo SoloStar U-300 Insulin) 40 units (0.1333 mL) subcut BEDTIME insulin lispro (Humalog KwikPen (U-100) Insulin) 25 units (0.25 mL) subcut TID 30 days lancets As directed linaclotide (Linzess) 145 mcg PO QAM losartan 25 mg PO DAILY pioglitazone 30 mg PO DAILY semaglutide (Ozempic) 1 mg (0.75 mL) subcut QWEEK 30 days tramadol 50 mg PO Q8H PRN 30 days Tobacco use date assessed: 12/10/23 Dental Screening Dental Screen Date: 12/10/23 HPI 4 month f/u HPI Details Patient comes in today for his follow up visit States that he feels okay He denies any headaches or dizziness Denies any chest pains, no SOB No nausea/vomiting, no abdominal pain No change in bowel habits noted Needs his Ozempic Rx refilled Had his follow up labs done last week - to discuss his results [facility] Medical History Constipation Vitamin D deficiency HLD (hyperlipidemia) HTN (hypertension) T2DM (type 2 diabetes mellitus) Keratotic lesion Arthralgia Pure hypercholesterolemia Overweight (BMI 25.0-29.9) Insomnia Neuropathy GERD without esophagitis Elevated LFTs Dyslipidemia Diabetes mellitus Surgical History History of esophagogastroduodenoscopy (EGD) H/O colonoscopy Hx of circumcision Hx of cholecystectomy Family History Father Medical history unknown Mother Diabetes Hypertension Other Substance abuse Social History Housing: House Alcohol intake: current Alcohol intake frequency: holidays/special occasions only Patient Tobacco Use Status: Never used Tobacco e-Cigarette/Vaping Use: Never Used Second Hand Smoke Exposure: Yes service: No Current occupational status: employed 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 1. Little interest or pleasure in doing things: not at all 2. Feeling down, depressed, or hopeless: not at all 3. Trouble falling or staying asleep, or sleeping too much: not at all 4. Feeling tired or having little energy: not at all 5. Poor appetite or overeating: not at all 6. Feeling bad about yourself - or that you are a failure or have let yourself or your family down: not at all 7. Trouble concentrating on things, such as reading the newspaper or watching television: not at all 8. Moving or speaking so slowly that other people could have noticed. Or the opposite - being so fidgety or restless that you have been moving around a lot more than usual: not at all 9. Thoughts that you would be better off or of hurting yourself in some way: not at all Total score: 0 Depression Screening Interpretation: Negative Depression Screening Done: Yes 82150 - PHQ-9 Billing: Yes Source: Developed by Drs. Efe Hernandez, Chanel Antoine, Kwame Ruiz and colleagues, with an educational sue from [employer]. Thrive Questionnaire Date Thrive assessed: 12/10/23 I am a: Patient What is your living situation today?: I have a steady place to live Within the past 12 months, did the food you bought not last and you didn't have the money to get more?: Never true Within the past 12 months, did you worry whether your food would run out before you got money to buy more?: Never true Do you have trouble paying for medicines?: No Do you have trouble getting transportation to medical appointments?: No Do you have trouble paying your heating and electricity bill?: No Do you have trouble taking care of your child, family member or friend?: No Do you have trouble with day-to-day activities such as bathing, preparing meals, shopping, managing finances, etc.?: No Are you currently unemployed and looking for a job?: No Are you interested in more education?: No Please select the resources that you would like help with: None Currently or been in a relationship where the following occur: no concerns reported THRIVE Score: 0 AUDIT C Alcohol Use Questionnaire (AUDIT-C) 1. How often do you have a drink containing alcohol?: Monthly or less 2. How many drinks containing alcohol do you have on a typical day when you are drinking?: 1 or 2 3. How often do you have six or more drinks on one occasion?: Never Total Score: 1 Score Reviewed/Action Taken: Yes PHIL-7 AMB Questionnaire PHIL-7 Date PHIL - 7 assessed: 12/10/23 Source: Developed by Drs. Efe Hernandez, Chanel Antoine, Kwame Ruiz and colleagues, with an educational sue from [employer]. Review of Systems Const Denies chills, Denies fatigue, Denies fever(s) and Denies headache(s) ENT Denies dysphagia, Denies dizziness, Denies otalgia, Denies headache(s), Denies neck pain, Denies odynophagia and Denies sore throat Card Denies chest pain, Denies palpitations and Denies dyspnea Resp Denies chest congestion, Denies cough and Denies dyspnea GI Denies abdominal pain, Reports constipation (on and off), Denies dysphagia, Denies heartburn, Denies diarrhea, Denies nausea, Denies odynophagia and Denies vomiting Denies difficulty urinating, Denies dysuria, Denies nocturia and Denies urinary frequency Musc Denies back pain and Denies neck pain Skin/Breast Denies rash Neuro Denies dizziness and Denies headache(s) Endo Denies fatigue and Denies palpitations Physical exam (Primary Care) Vital Signs: Last Vital Signs Pulse 60 12/10/23 14:25 BP 112/60 12/10/23 14:25 Pulse Ox 97 12/10/23 14:25 Oxygen Delivery Method Room Air 12/10/23 14:25 BMI result Body Mass Index 23.0 Tobacco/Smoking Status: Tobacco use Status Tobacco use date assessed 12/10/23 12/10/23 14:27 Patient Tobacco Use Status Never used Tobacco 12/10/23 14:27 e-Cigarette/Vaping Use Never Used 12/10/23 14:27 PHQ-9: PHQ-9 Score PHQ-9: Total score 0 12/10/23 14:27 Depression Screening Interpretation: Negative Thrive Assessment: Date of Thrive Assessment Date Thrive assessed 12/10/23 12/10/23 14:27 Currently or been in a relationship where the following occur: no concerns reported Const General: no acute distress and alert HENMT Ears: TM's normal bilaterally and EAC's normal Throat: Yes posterior oropharynx normal and Yes tonsils normal (no TP congestion noted) Neck Neck: Yes no lymphadenopathy and Yes supple Thyroid: Thyroid normal Resp Auscultation: clear to auscultation bilaterally, no rales and no wheezes Cardio Rate: regular rate Rhythm: regular rhythm Heart sounds: no murmurs GI Palpation (GI): Soft to palpation and nontender Auscultation: normal bowel sounds General: Yes no CVA tenderness Back/Spine/Pelvis Back: no CVA tenderness Thoracic/Lumbar Spine: No lumbar spinal tenderness Skin Rashes: no rashes Extrem General: Yes no clubbing, cyanosis or edema Results Reviewed Results Reviewed: Laboratory Tests 12/03/23 12/03/23 10:51 11:35 WBC 3.5 L Hgb 13.9 L Hct 39.5 L Plt Count 267 Sodium 138 Potassium 4.0 Creatinine 0.79 Estimated GFR > 60 Fasting Glucose 108 H Hemoglobin A1c % 6.7 H Calcium 9.6 AST 18 ALT 17 Triglycerides 73 Cholesterol 166 LDL Cholesterol, Calc 90 HDL Cholesterol 62 25-OH Vitamin D Total 16.6 L TSH 1.94 Ur Specific [place] 1.020 Urine Protein Negative Urine Glucose (UA) Negative Urine Blood Negative Urine Nitrite Negative Ur Leukocyte Esterase Negative Microalb/Creat Ratio 4.1 Assessment and Plan Assessment & Plan (1) Diabetes mellitus: Code(s): E11.9 - Type 2 diabetes mellitus without complications Qualifiers: Diabetes mellitus type: type 2 Diabetes mellitus termite treater helper insulin use: with termite treater helper use Diabetes mellitus complication status: with neurologic complications Diabetes mellitus complication detail: with polyneuropathy Qualified Code(s): E11.42 - Type 2 diabetes mellitus with diabetic polyneuropathy; Z79.4 - alf (current) use of insulin Plan: Patient's HgbA1c is at 6.7% on his labs done last week (was at 6.8% a few months ago) - goal is < 7.0% Reinforced diabetic diet Continue Jardiance 25 mg QD, Toujeo 40 units QD, Humalog 25 units 3 times a day with meals dosed per sliding scale, Pioglitazone 30 mg QD and Ozempic 1 mg SQ once a week Follow up with endocrinology as scheduled He is also on Losartan 25 mg QD for renoprotection (2) Pure hypercholesterolemia: Code(s): E78.00 - Pure hypercholesterolemia, unspecified Plan: Results of his labs done last week reviewed and discussed with patient Reinforced low cholesterol diet Continue Atorvastatin 40 mg QD Will recheck his labs and fasting lipids in 4 months for follow up (3) Elevated LFTs: Code(s): R79.89 - Other specified abnormal findings of blood chemistry Plan: Resolved - LFTs remain normal on his follow up labs done last week Will continue to monitor his LFTs regularly (4) GERD without esophagitis: Code(s): K21.9 - Gastro-esophageal reflux disease without esophagitis Plan: Dietary restrictions reinforced (5) Constipation: Code(s): K59.00 - Constipation, unspecified Qualifiers: Constipation type: unspecified constipation type Qualified Code(s): K59.00 - Constipation, unspecified Plan: Improved - encouraged increased oral fluids and dietary fiber Continue Linzess 145 mcg QD and Senna 8.6 mg 1 to 2 tablets Q HS PRN (6) Hyperkalemia: Code(s): E87.5 - Hyperkalemia Plan: Resolved; serum potassium level has remained normal on his recent labs (7) Neuropathy: Code(s): G62.9 - Polyneuropathy, unspecified Plan: EMG and NCV done on 09/02/2017 revealed (+)? mild sensory and motor, axonal and chronic peripheral neuropathy and mild to moderate bilateral distal tibial neuropathy across the tarsal tunnel Emphasize again the importance of strict glycemic control to help slow down the progression of his neuropathy Continue Gabapentin 100 mg Q HS and Tramadol 50 mg TID PRN for pain (8) Vitamin D deficiency: Code(s): E55.9 - Vitamin D deficiency, unspecified Plan: He is advised that his Vitamin D level has been steadily dropping from last year He admits that he often forgets to take this and will try to do better Continue Vitamin D3 2000 units QD - Rx refilled (9) Insomnia: Code(s): G47.00 - Insomnia, unspecified Qualifiers: Insomnia type: unspecified Qualified Code(s): G47.00 - Insomnia, unspecified Plan: Sleep hygiene reinforced Used to take Trazodone 50 mg once a day at bedtime as needed but has not need to lately Plan Follow up in 4 months Orders: Orders Complete Blood Count Auto Diff 4 Months D64.9 - Anemia, unspecified Comprehensive [place]. Panel Fast 4 Months E78.00 - Pure hypercholesterolemia, unspecified Lipid Panel 4 Months E78.00 - Pure hypercholesterolemia, unspecified Hemoglobin A1c 4 Months E11.9 - Type 2 diabetes mellitus without complications UA CC w/rflx Micro + Cult 4 Months R30.0 - Dysuria TSH reflex Free T4 4 Months E78.00 - Pure hypercholesterolemia, unspecified Vitamin D 25-OH Total 4 Months E55.9 - Vitamin D deficiency, unspecified Vitamin B12 and Folate 4 Months E53.8 - Deficiency of other specified B group vitamins Medications: New cholecalciferol (vitamin D3) 50 mcg PO DAILY 90 days 90 caps 3RF E55.9 - Vitamin D deficiency, unspecified Refilled semaglutide (Ozempic) 1 mg (0.75 mL) subcut QWEEK 30 days 3.75 mL 11RF E11.9 - Type 2 diabetes mellitus without complications Review Flu Vaccine not done: patient reason (patient declined) Coding Level of Care Code Est Pt Level 4 (97618) Diagnoses Type 2 diabetes mellitus with diabetic polyneuropathy, with long-term current use of insulin E11.42; Z79.4 Diabetes mellitus type: type 2 Diabetes mellitus termite treater helper insulin use: with group home use Diabetes mellitus complication status: with neurologic complications Diabetes mellitus complication detail: with polyneuropathy Pure hypercholesterolemia E78.00 Elevated LFTs R79.89 GERD without esophagitis K21.9 Constipation, unspecified constipation type K59.00 Constipation type: unspecified constipation type Hyperkalemia E87.5 Neuropathy G62.9 Vitamin D deficiency E55.9 Insomnia, unspecified type G47.00 Insomnia type: unspecified
== END 2023-12-10 15:09 | disposition home or self-care (01) ==
PROVIDERS: PCP Internal Medicine; Visit Provider Internal Medicine
DX: E11.42 Type 2 diabetes mellitus with diabetic polyneuropathy (principal); Z79.4 Long term (current) use of insulin; E78.00 Pure hypercholesterolemia, unspecified; R79.89 Other specified abnormal findings of blood chemistry; K21.9 Gastro-esophageal reflux disease without esophagitis; K59.00 Constipation, unspecified; E87.5 Hyperkalemia; G62.9 Polyneuropathy, unspecified; E55.9 Vitamin D deficiency, unspecified; G47.00 Insomnia, unspecified
CPT/HCPCS: 99214

== ENCOUNTER 2024-04-21 10:15 | Outpatient (REF) | payer OTHER, SELFPAY ==
[2024-04-21 10:28] LABS: MANUAL DIFF FLAG NO
[2024-04-21 10:52] LABS: Basophils Absolute Auto 0.1 X10*3/uL (0.0-0.2); Basophils Percent Auto 1.3 % (0-2); Eosinophils Absolute Auto 0.2 X10*3/uL (0.0-0.4); Eosinophils Percent Auto 6.1 % (0-4); Hematocrit 39.7 % (42.0-52.0); Hemoglobin 13.5 g/dl (14.0-18.0); Imm Gran Abs Auto 0.01 X10*3/uL (0.00-0.03); Imm Gran Pct Auto 0.3 % (0.0-0.4); Lymphocytes Absolute Auto 1.5 X10*3/uL (1.2-4.9); Lymphocytes Percent Auto 38.7 % (20-40); Mean Corpuscular Hemoglobin 29.7 pg (27.0-33.0); Mean Corpuscular Volume 87.4 fL (80.0-98.0); Mean Platelet Volume 9.1 fL (9.4-12.4); Monocytes Absolute Auto 0.4 X10*3/uL (0.1-1.2); Monocytes Percent Auto 9.1 % (2-11); Neutrophils Absolute Auto 1.8 x10*3/uL (2.0-8.3); Neutrophils Percent Auto 44.5 % (45-73); Platelet Count 227 X10*3/uL (160-400); Red Blood Count 4.54 X10*6/uL (4.60-5.80); Red Cell Distribution Width 12.7 % (11.0-16.0)
[2024-04-21 12:13] LABS: Folate 7.8 ng/mL (> or = 4.0); Vitamin B12 225 pg/mL (200-900)
[2024-04-21 12:29] LABS: Estimated Average Glucose 143 mg/dL; Hemoglobin A1c % 6.6 % (<6.0)
[2024-04-21 12:31] LABS: Alanine Aminotransferase 25 U/L (0-40); Albumin Level 4.2 g/dL (3.5-5.0); Alkaline Phosphatase 78 U/L (39-117); Anion Gap 9 (12-20); Aspartate Amino Transferase 20 U/L (5-37); Bilirubin Total 0.4 mg/dL (0.0-1.0); Blood Urea Nitrogen 14 mg/dL (9-16); Calcium 9.8 mg/dL (8.4-10.2); Carbon Dioxide 31 mmol/L (22-29); Chloride 104 mmol/L (96-108); Cholesterol 174 mg/dL (<200); Estimated Glomerular Filt Rate > 60; Glucose Fasting 124 mg/dL (60-99); HDL Cholesterol 59 mg/dL (>40); LDL Cholesterol Calculated 100 mg/dL (<100); Potassium 4.5 mmol/L (3.3-5.1); Sodium 139 mmol/L (135-145); TSH reflex Free T4 2.09 uIU/mL (0.32-4.0); Total Protein 7.5 g/dL (6.5-8.0); Triglycerides 75 mg/dL (<150)
== END 2024-04-21 10:16 | disposition home or self-care (01) ==
LOC: HO.LAB 10:15
PROVIDERS: PCP Internal Medicine; Visit Provider Internal Medicine
DX: E11.9 Type 2 diabetes mellitus without complications (principal); E78.00 Pure hypercholesterolemia, unspecified; E55.9 Vitamin D deficiency, unspecified; D64.9 Anemia, unspecified; E53.8 Deficiency of other specified B group vitamins
CPT/HCPCS: 36415; 80053; 80061; 82306; 82607; 82746; 83036; 84443; 85025

== ENCOUNTER 2024-04-28 14:48 | Outpatient (AMB) | payer OTHER, SELFPAY ==
[2024-04-28 14:51] VITALS: BP 100/64; PULSE 68; O2SAT 99; BMI 22.4
--- NOTE | 2024-04-28 14:51 | MHC.PC.OV ---
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 Required: No Accompanied by: Self / Same As Patient Allergies Penicillins Allergy (Unknown, Verified 04/28/24 15:21) RASH/SOB Medication List - Last Reconciled 04/28/24 by Vitkor Damon MD atorvastatin 40 mg PO DAILY blood sugar diagnostic (FreeStyle Lite Strips) USE TO TEST BLOOD SUGAR 3 TIMES A DAY blood-glucose meter,continuous (DexVigour.io G7 Single Corner Cutter) As directed blood-glucose sensor (DexVigour.io G7 Sensor device) every 10 days cholecalciferol (vitamin D3) 50 mcg PO DAILY 90 days empagliflozin (Jardiance) 25 mg PO DAILY gabapentin 100 mg PO DAILY insulin glargine U-300 conc (Toujeo SoloStar U-300 Insulin) 40 units (0.1333 mL) subcut BEDTIME insulin lispro (Humalog KwikPen (U-100) Insulin) 25 units (0.25 mL) subcut TID 30 days lancets As directed linaclotide (Linzess) 145 mcg PO QAM losartan 25 mg PO DAILY pioglitazone 30 mg PO DAILY semaglutide (Ozempic) 1 mg (0.75 mL) subcut QWEEK 30 days tramadol 50 mg PO Q8H PRN 30 days Tobacco use date assessed: 04/28/24 Dental Screening Dental Screen Date: 04/28/24 Did you have a dental visit in the last 12 months?: Yes Did you have a dental problem in the last 6 months where you did not have access to dental care?: No Was dental information given to patient?: Patient has dentist HPI 4mth f/u HPI Details Patient comes in today for his follow up visit States that he feels okay but his son is concerned that patient appears to be continuing to lose weight gradually States that he seems to be consistently losing at least 4 to 5 pounds every time he comes in for his appointment and they are now concerned that he is losing too much weight He denies any headaches or dizziness Denies any chest pains, no SOB No nausea/vomiting, no abdominal pain No change in bowel habits noted He had his follow up labs done last week - to discuss his results [facility] Medical History Constipation Vitamin D deficiency HLD (hyperlipidemia) HTN (hypertension) T2DM (type 2 diabetes mellitus) Keratotic lesion Arthralgia Pure hypercholesterolemia Overweight (BMI 25.0-29.9) Insomnia Neuropathy GERD without esophagitis Elevated LFTs Dyslipidemia Diabetes mellitus Surgical History History of esophagogastroduodenoscopy (EGD) H/O colonoscopy Hx of circumcision Hx of cholecystectomy Family History Father Medical history unknown Mother Diabetes Hypertension Other Substance abuse Social History Housing: House Alcohol intake: current Alcohol intake frequency: holidays/special occasions only Patient Tobacco Use Status: Never used Tobacco e-Cigarette/Vaping Use: Never Used Second Hand Smoke Exposure: Yes service: No Current occupational status: employed 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 1. Little interest or pleasure in doing things: not at all 2. Feeling down, depressed, or hopeless: not at all 3. Trouble falling or staying asleep, or sleeping too much: not at all 4. Feeling tired or having little energy: not at all 5. Poor appetite or overeating: not at all 6. Feeling bad about yourself - or that you are a failure or have let yourself or your family down: not at all 7. Trouble concentrating on things, such as reading the newspaper or watching television: not at all 8. Moving or speaking so slowly that other people could have noticed. Or the opposite - being so fidgety or restless that you have been moving around a lot more than usual: not at all 9. Thoughts that you would be better off or of hurting yourself in some way: not at all Total score: 0 Depression Screening Interpretation: Negative Depression Screening Done: Yes 15242 - PHQ-9 Billing: Yes Source: Developed by Drs. Efe Hernandez, Chanel Antoine, Kwame Ruiz and colleagues, with an educational sue from [employer]. Thrive Questionnaire Date Thrive assessed: 04/28/24 I am a: Patient What is your living situation today?: I have a steady place to live Within the past 12 months, did the food you bought not last and you didn't have the money to get more?: Never true Within the past 12 months, did you worry whether your food would run out before you got money to buy more?: Never true Do you have trouble paying for medicines?: No Do you have trouble getting transportation to medical appointments?: No Do you have trouble paying your heating and electricity bill?: No Do you have trouble taking care of your child, family member or friend?: No Do you have trouble with day-to-day activities such as bathing, preparing meals, shopping, managing finances, etc.?: No Are you currently unemployed and looking for a job?: No Are you interested in more education?: No Please select the resources that you would like help with: None Currently or been in a relationship where the following occur: No concerns reported THRIVE Score: 0 AUDIT C Alcohol Use Questionnaire (AUDIT-C) 1. How often do you have a drink containing alcohol?: Monthly or less 2. How many drinks containing alcohol do you have on a typical day when you are drinking?: 1 or 2 3. How often do you have six or more drinks on one occasion?: Never Total Score: 1 Score Reviewed/Action Taken: Yes PHIL-7 AMB Questionnaire PHIL-7 Date PHIL - 7 assessed: 04/28/24 Feeling nervous, anxious, or on edge: 0 = Not at all Not being able to stop or control worryin = Not at all Worrying too much about different things: 0 = Not at all Trouble relaxin = Not at all Being so restless that it is hard to sit still: 0 = Not at all Becoming easily annoyed or irritable: 0 = Not at all Feeling afraid as if something awful might happen: 0 = Not at all Total PHIL-7 score (0-4 normal; 5-9 mild; 10-14 moderate; 15-21 severe): 0 Source: Developed by Drs. Efe Hernandez, Chanel Antoine, Kwame Ruiz and colleagues, with an educational sue from [employer]. Review of Systems Const Denies chills, Denies fatigue, Denies fever(s) and Denies headache(s) ENT Denies dysphagia, Denies dizziness, Denies otalgia, Denies headache(s), Denies neck pain, Denies odynophagia and Denies sore throat Card Denies chest pain, Denies palpitations and Denies dyspnea Resp Denies chest congestion, Denies cough and Denies dyspnea GI Denies abdominal pain, Reports constipation (on and off), Denies dysphagia, Denies heartburn, Denies diarrhea, Denies nausea, Denies odynophagia and Denies vomiting Denies difficulty urinating, Denies dysuria, Denies nocturia and Denies urinary frequency Musc Denies back pain and Denies neck pain Skin/Breast Denies rash Neuro Denies dizziness and Denies headache(s) Endo Denies fatigue and Denies palpitations Physical exam (Primary Care) Vital Signs: Last Vital Signs Pulse 68 04/28/24 14:51 BP 100/64 04/28/24 14:51 Pulse Ox 99 04/28/24 14:51 Oxygen Delivery Method Room Air 04/28/24 14:51 BMI result Body Mass Index 22.4 Tobacco/Smoking Status: Tobacco use Status Tobacco use date assessed 04/28/24 04/28/24 15:00 Patient Tobacco Use Status Never used Tobacco 04/28/24 15:00 e-Cigarette/Vaping Use Never Used 04/28/24 15:00 PHQ-9: PHQ-9 Score PHQ-9: Total score 0 04/28/24 15:00 Depression Screening Interpretation: Negative Thrive Assessment: Date of Thrive Assessment Date Thrive assessed 04/28/24 04/28/24 15:00 Currently or been in a relationship where the following occur: No concerns reported Const General: no acute distress and alert HENMT Ears: TM's normal bilaterally and EAC's normal Throat: Yes posterior oropharynx normal and Yes tonsils normal (no TP congestion noted) Neck Neck: Yes no lymphadenopathy and Yes supple Thyroid: Thyroid normal Resp Auscultation: clear to auscultation bilaterally, no rales and no wheezes Cardio Rate: regular rate Rhythm: regular rhythm Heart sounds: no murmurs GI Palpation (GI): Soft to palpation and nontender Auscultation: normal bowel sounds General: Yes no CVA tenderness Back/Spine/Pelvis Back: no CVA tenderness Thoracic/Lumbar Spine: No lumbar spinal tenderness Skin Rashes: no rashes Extrem General: Yes no clubbing, cyanosis or edema Results Reviewed Results Reviewed: Laboratory Tests 04/21/24 10:27 WBC 4.0 L Hgb 13.5 L Hct 39.7 L Plt Count 227 Sodium 139 Potassium 4.5 Creatinine 0.84 Estimated GFR > 60 Fasting Glucose 124 H Hemoglobin A1c % 6.6 H Calcium 9.8 AST 20 ALT 25 Triglycerides 75 Cholesterol 174 LDL Cholesterol, Calc 100 H HDL Cholesterol 59 Vitamin B12 225 25-OH Vitamin D Total 27.0 L TSH 2.09 Assessment and Plan Assessment & Plan (1) Diabetes mellitus: Code(s): E11.9 - Type 2 diabetes mellitus without complications Qualifiers: Diabetes mellitus type: type 2 Diabetes mellitus ferry terminal 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 insulin use: with correction use Diabetes mellitus complication status: with neurologic complications Diabetes mellitus complication detail: with polyneuropathy Qualified Code(s): E11.42 - Type 2 diabetes mellitus with diabetic polyneuropathy; Z79.4 - terminal supervisor (current) use of insulin Plan: His HgbA1c was at 6.6% on his labs done last week (was previously at 6.7% a few months ago) - goal is < 7.0% Reinforced diabetic diet Continue Jardiance 25 mg QD, Toujeo 40 units QD, Humalog 25 units 3 times a day with meals dosed per sliding scale, Pioglitazone 30 mg QD and Ozempic 1 mg SQ once a week Follow up with endocrinology as scheduled He is also on Losartan 25 mg QD for renoprotection (2) Pure hypercholesterolemia: Code(s): E78.00 - Pure hypercholesterolemia, unspecified Plan: Results of his labs done last week reviewed and discussed with patient Reinforced low cholesterol diet Continue Atorvastatin 40 mg QD Will recheck his labs and fasting lipids in 4 months for follow up (3) Elevated LFTs: Code(s): R79.89 - Other specified abnormal findings of blood chemistry Plan: Resolved - his LFTs have remained normal on his recent labs done last week Will continue to monitor his LFTs regularly (4) GERD without esophagitis: Code(s): K21.9 - Gastro-esophageal reflux disease without esophagitis Plan: Dietary restrictions reinforced (5) Constipation: Code(s): K59.00 - Constipation, unspecified Qualifiers: Constipation type: unspecified constipation type Qualified Code(s): K59.00 - Constipation, unspecified Plan: Improved - he is again encouraged on increased oral fluids and dietary fiber Continue Linzess 145 mcg QD and Senna 8.6 mg 1 to 2 tablets Q HS PRN (6) Hyperkalemia: Code(s): E87.5 - Hyperkalemia Plan: Resolved; serum potassium level has remained normal on his recent labs (7) Vitamin D deficiency: Code(s): E55.9 - Vitamin D deficiency, unspecified Plan: He is advised that his Vitamin D level has been steadily dropping from last year He admits that he often forgets to take this and will try to do better Continue Vitamin D3 2000 units QD - Rx refilled (8) Neuropathy: Code(s): G62.9 - Polyneuropathy, unspecified Plan: EMG and NCV done on 09/02/2017 revealed (+)? mild sensory and motor, axonal and chronic peripheral neuropathy and mild to moderate bilateral distal tibial neuropathy across the tarsal tunnel Emphasize again the importance of strict glycemic control to help slow down the progression of his neuropathy Continue Gabapentin 100 mg Q HS and Tramadol 50 mg TID PRN for pain (9) Insomnia: Code(s): G47.00 - Insomnia, unspecified Qualifiers: Insomnia type: unspecified Qualified Code(s): G47.00 - Insomnia, unspecified Plan: Sleep hygiene reinforced Used to take Trazodone 50 mg once a day at bedtime as needed but has not need to lately (10) Weight loss: Code(s): R63.4 - Abnormal weight loss Plan: Have discussed that patient's BMI is currently still normal so concerns about his weight may be premature However, his family's concern about his progressive weight loss are also valid as he has been losing weight consistently at every follow up visit Will adds some additional labs to check his serum testosterone level for his next follow up appt but have advised that his recent weight loss may also be related to his being on Ozempic so if his labs are all normal at his next visit, we can consider backing down on his Rx dose then Plan Follow up in 4 months Orders: Orders Comprehensive [place]. Panel Fast 4 Months E78.00 - Pure hypercholesterolemia, unspecified Hemoglobin A1c 4 Months E11.9 - Type 2 diabetes mellitus without complications Complete Blood Count Auto Diff 4 Months D64.9 - Anemia, unspecified Lipid Panel 4 Months E78.00 - Pure hypercholesterolemia, unspecified Microalbumin, Random (w Creat) 4 Months E11.9 - Type 2 diabetes mellitus without complications TSH reflex Free T4 4 Months E78.00 - Pure hypercholesterolemia, unspecified UA CC w/rflx Micro + Cult 4 Months R30.0 - Dysuria Testosterone, Free/Total 4 Months R63.4 - Abnormal weight loss, R79.89 - Other specified abnormal findings of blood chemistry Vitamin D 25-OH Total 4 Months E55.9 - Vitamin D deficiency, unspecified Prostate Specific Antigen Scr 4 Months R35.0 - Frequency of micturition Coding Level of Care Code Est Pt Level 4 (35798) Complex EM visit Add On G2211 Diagnoses Type 2 diabetes mellitus with diabetic polyneuropathy, with long-term current use of insulin E11.42; Z79.4 Diabetes mellitus type: type 2 Diabetes mellitus ferry terminal supervisor insulin use: with ferry terminal supervisor use Diabetes mellitus complication status: with neurologic complications Diabetes mellitus complication detail: with polyneuropathy Pure hypercholesterolemia E78.00 Elevated LFTs R79.89 GERD without esophagitis K21.9 Constipation, unspecified constipation type K59.00 Constipation type: unspecified constipation type Hyperkalemia E87.5 Vitamin D deficiency E55.9 Neuropathy G62.9 Insomnia, unspecified type G47.00 Insomnia type: unspecified Weight loss R63.4
== END 2024-04-28 15:36 | disposition home or self-care (01) ==
PROVIDERS: PCP Internal Medicine; Visit Provider Internal Medicine
DX: E11.42 Type 2 diabetes mellitus with diabetic polyneuropathy (principal); Z79.4 Long term (current) use of insulin; E78.00 Pure hypercholesterolemia, unspecified; R79.89 Other specified abnormal findings of blood chemistry; K21.9 Gastro-esophageal reflux disease without esophagitis; K59.00 Constipation, unspecified; E87.5 Hyperkalemia; E55.9 Vitamin D deficiency, unspecified; G62.9 Polyneuropathy, unspecified; G47.00 Insomnia, unspecified; R63.4 Abnormal weight loss
CPT/HCPCS: 99214; G2211

== ENCOUNTER 2024-10-06 09:37 | Outpatient (REF) | payer BC, SELFPAY ==
[2024-10-06 10:02] LABS: MANUAL DIFF FLAG NO
[2024-10-06 10:51] LABS: Appearance Urine Clear; Color Urine Yellow; Glucose Urine UA Negative (Negative); Leukocyte Esterase Urine Negative (Negative); Nitrite Urine Negative (Negative); Specific Gravity - Urine >= 1.030 (1.005-1.025); Urine Blood Negative (Negative); Urine Ketones Trace mg/dL (Negative); Urine Protein Negative (Neg-Trace)
[2024-10-06 10:54] LABS: Basophils Percent Auto 1.5 % (0-2); Eosinophils Absolute Auto 0.2 X10*3/uL (0.0-0.4); Hematocrit 40.2 % (42.0-52.0); Hemoglobin 13.9 g/dl (14.0-18.0); Lymphocytes Absolute Auto 1.1 X10*3/uL (1.2-4.9); Lymphocytes Percent Auto 40.3 % (20-40); Mean Corpuscular HGB Conc 34.6 g/dl (31.0-36.0); Mean Corpuscular Hemoglobin 29.8 pg (27.0-33.0); Mean Corpuscular Volume 86.3 fL (80.0-98.0); Mean Platelet Volume 8.9 fL (9.4-12.4); Monocytes Absolute Auto 0.2 X10*3/uL (0.1-1.2); Monocytes Percent Auto 8.6 % (2-11); Neutrophils Absolute Auto 1.2 x10*3/uL (2.0-8.3); Neutrophils Percent Auto 43.6 % (45-73); Platelet Count 220 X10*3/uL (160-400); Red Blood Count 4.66 X10*6/uL (4.60-5.80); White Blood Count 2.7 X10*3/uL (4.8-10.8)
[2024-10-06 11:05] LABS: Estimated Average Glucose 154 mg/dL; Hemoglobin A1C 189.0027 umol/L; Total Hemoglobin (HGBA1C) 3593.9241 umol/L
[2024-10-06 11:26] LABS: Creatinine Urine 224.39 mg/dL; Microalbum/Creatinine Ratio Ur 4.9 ug/mg cr (<30)
[2024-10-06 11:48] LABS: Prostate Specific Antigen Scr 2.28 ng/mL (<0.05-4.0)
[2024-10-06 11:59] LABS: Alanine Aminotransferase 25 U/L (0-40); Albumin Level 4.2 g/dL (3.5-5.0); Alkaline Phosphatase 81 U/L (39-117); Anion Gap 9 (12-20); Aspartate Amino Transferase 22 U/L (5-37); Bilirubin Total 0.6 mg/dL (0.0-1.0); Blood Urea Nitrogen 15 mg/dL (9-16); Calcium 9.3 mg/dL (8.4-10.2); Carbon Dioxide 28 mmol/L (22-29); Chloride 105 mmol/L (96-108); Cholesterol 152 mg/dL (<200); Estimated Glomerular Filt Rate > 60; Glucose Fasting 131 mg/dL (60-99); HDL Cholesterol 61 mg/dL (>40); LDL Cholesterol Calculated 82 mg/dL (<100); Sodium 138 mmol/L (135-145); Total Protein 7.7 g/dL (6.5-8.0); Triglycerides 49 mg/dL (<150)
[2024-10-06 12:18] LABS: TSH reflex Free T4 1.84 uIU/mL (0.32-4.0); Vitamin D 25-OH Total 15.8 ng/mL (>30)
[2024-10-11 17:19] LABS: Testosterone, Free 76.3 pg/mL (35.0-155.0); Testosterone, Total 512 ng/dL (250-1100)
== END 2024-10-06 09:38 | disposition home or self-care (01) ==
LOC: HO.LAB 09:37
PROVIDERS: PCP Internal Medicine; Visit Provider Internal Medicine
DX: D64.9 Anemia, unspecified (principal); E78.00 Pure hypercholesterolemia, unspecified; E11.9 Type 2 diabetes mellitus without complications; E55.9 Vitamin D deficiency, unspecified; R35.0 Frequency of micturition; R30.0 Dysuria; R79.89 Other specified abnormal findings of blood chemistry; R63.4 Abnormal weight loss; Z12.5 Encounter for screening for malignant neoplasm of prostate
CPT/HCPCS: 36415; 80053; 80061; 81003; 82043; 82306; 82570; 83036; 84153; 84402; 84403; 84443; 85025

== ENCOUNTER 2024-10-13 17:23 | Outpatient (AMB) | payer BC, SELFPAY ==
--- NOTE | 2024-10-13 17:30 | A.OFFPC_ITS ---
Vital Signs 10/13/24 17:31 Height 5 ft 4 in Weight 134 lb 8 oz BMI 23.1 BP 102/64 Blood Pressure Location Lt brachial Position Sitting Pulse 67 Pulse Source Pulse Oximeter Pulse Oximetry (%) 97 Oxygen Delivery Method Room Air Intake Visit Reasons: follow up Nuclear Operations Specialist Required: No Accompanied by: Son Allergies Penicillins Allergy (Unknown, Verified 10/13/24 17:47) RASH/SOB Medication List - Last Reconciled 10/13/24 by Viktor Damon MD atorvastatin 40 mg PO DAILY blood sugar diagnostic (FreeStyle Lite Strips) USE TO TEST BLOOD SUGAR 3 TIMES A DAY blood-glucose meter,continuous (Dexcom G7 Cement Fittings Maker) As directed blood-glucose sensor (Dexcom G7 Sensor device) every 10 days cholecalciferol (vitamin D3) 50 mcg PO DAILY 90 days empagliflozin (Jardiance) 25 mg PO DAILY gabapentin 100 mg PO DAILY insulin glargine U-300 conc (Toujeo SoloStar U-300 Insulin) 40 units (0.1333 mL) subcut BEDTIME insulin lispro (Humalog KwikPen (U-100) Insulin) 25 units (0.25 mL) subcut TID 30 days lancets As directed linaclotide (Linzess) 145 mcg PO QAM losartan 25 mg PO DAILY pioglitazone 30 mg PO DAILY semaglutide (Ozempic) 1 mg (0.75 mL) subcut QWEEK 30 days tramadol 50 mg PO Q8H PRN 30 days Tobacco use date assessed: 10/13/24 Dental Screening Dental Screen Date: 10/13/24 Did you have a dental visit in the last 12 months?: Yes Did you have a dental problem in the last 6 months where you did not have access to dental care?: No Was dental information given to patient?: Patient has dentist HPI follow up HPI Details Patient comes in today for his follow-up visit States that he feels okay He denies any headaches or dizziness Denies any chest pains, no shortness of breath No nausea/vomiting, no abdominal pain No change in bowel habits noted He had his follow-up labs done last week - to discuss his results [facility] Medical History Constipation Vitamin D deficiency HLD (hyperlipidemia) HTN (hypertension) T2DM (type 2 diabetes mellitus) Keratotic lesion Arthralgia Pure hypercholesterolemia Overweight (BMI 25.0-29.9) Insomnia Neuropathy GERD without esophagitis Elevated LFTs Dyslipidemia Diabetes mellitus Surgical History History of esophagogastroduodenoscopy (EGD) H/O colonoscopy Hx of circumcision Hx of cholecystectomy Family History Father Medical history unknown Mother Diabetes Hypertension Other Substance abuse Social History Housing: House Alcohol intake: current Alcohol intake frequency: holidays/special occasions only Patient Tobacco Use Status: Never used Tobacco e-Cigarette/Vaping Use: Never Used Second Hand Smoke Exposure: Yes service: No Current occupational status: employed 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 1. Little interest or pleasure in doing things: not at all 2. Feeling down, depressed, or hopeless: not at all 3. Trouble falling or staying asleep, or sleeping too much: not at all 4. Feeling tired or having little energy: not at all 5. Poor appetite or overeating: not at all 6. Feeling bad about yourself - or that you are a failure or have let yourself or your family down: not at all 7. Trouble concentrating on things, such as reading the newspaper or watching television: not at all 8. Moving or speaking so slowly that other people could have noticed. Or the opposite - being so fidgety or restless that you have been moving around a lot more than usual: not at all 9. Thoughts that you would be better off or of hurting yourself in some way: not at all Total score: 0 Depression Screening Interpretation: Negative Depression Screening Done: Yes 28502 - PHQ-9 Billing: Yes Source: Developed by Drs. Efe Hernandez, Chanel Antoine, Kwame Ruiz and colleagues, with an educational sue from [employer] Thrive Questionnaire Date Thrive assessed: 10/13/24 I am a: Patient What is your living situation today?: I have a steady place to live Within the past 12 months, did the food you bought not last and you didn't have the money to get more?: Never true Within the past 12 months, did you worry whether your food would run out before you got money to buy more?: Never true Do you have trouble paying for medicines?: No Do you have trouble getting transportation to medical appointments?: No Do you have trouble paying your heating and electricity bill?: No Do you have trouble taking care of your child, family member or friend?: No Do you have trouble with day-to-day activities such as bathing, preparing meals, shopping, managing finances, etc.?: No Are you currently unemployed and looking for a job?: No Are you interested in more education?: No Please select the resources that you would like help with: None Currently or been in a relationship where the following occur: No concerns reported THRIVE Score: 0 AUDIT C Alcohol Use Questionnaire (AUDIT-C) 1. How often do you have a drink containing alcohol?: Monthly or less 2. How many drinks containing alcohol do you have on a typical day when you are drinking?: 1 or 2 3. How often do you have six or more drinks on one occasion?: Never Total Score: 1 Score Reviewed/Action Taken: Yes PHIL-7 AMB Questionnaire PHIL-7 Date PHIL - 7 assessed: 10/13/24 Feeling nervous, anxious, or on edge: 0 = Not at all Not being able to stop or control worryin = Not at all Worrying too much about different things: 0 = Not at all Trouble relaxin = Not at all Being so restless that it is hard to sit still: 0 = Not at all Becoming easily annoyed or irritable: 0 = Not at all Feeling afraid as if something awful might happen: 0 = Not at all Total PHIL-7 score (0-4 normal; 5-9 mild; 10-14 moderate; 15-21 severe): 0 Source: Developed by Drs. Efe Hernandez, Chanel Antoine, Kwame Ruiz and colleagues, with an educational sue from [employer] Review of Systems Const Denies chills, Denies fatigue, Denies fever(s) and Denies headache(s) ENT Denies dysphagia, Denies dizziness, Denies otalgia, Denies headache(s), Denies neck pain, Denies odynophagia and Denies sore throat Card Denies chest pain, Denies palpitations and Denies dyspnea Resp Denies chest congestion, Denies cough and Denies dyspnea GI Denies abdominal pain, Reports constipation (on and off), Denies dysphagia, Denies heartburn, Denies diarrhea, Denies nausea, Denies odynophagia and Denies vomiting Denies difficulty urinating, Denies dysuria, Denies nocturia and Denies urinary frequency Musc Denies back pain and Denies neck pain Skin/Breast Denies rash Neuro Denies dizziness and Denies headache(s) Endo Denies fatigue and Denies palpitations Physical exam (Primary Care) Vital Signs: Last Vital Signs Pulse 67 10/13/24 17:31 BP 102/64 10/13/24 17:31 Pulse Ox 97 10/13/24 17:31 Oxygen Delivery Method Room Air 10/13/24 17:31 BMI result Body Mass Index 23.1 Tobacco/Smoking Status: Tobacco use Status Tobacco use date assessed 10/13/24 10/13/24 17:33 Patient Tobacco Use Status Never used Tobacco 10/13/24 17:33 e-Cigarette/Vaping Use Never Used 10/13/24 17:33 PHQ-9: PHQ-9 Score PHQ-9: Total score 0 10/13/24 17:48 Depression Screening Interpretation: Negative Thrive Assessment: Date of Thrive Assessment Date Thrive assessed 10/13/24 10/13/24 17:34 Currently or been in a relationship where the following occur: No concerns reported Const General: no acute distress and alert HENMT Ears: TM's normal bilaterally and EAC's normal Throat: Yes posterior oropharynx normal and Yes tonsils normal (no TP congestion noted) Neck Neck: Yes no lymphadenopathy and Yes supple Thyroid: Thyroid normal Resp Auscultation: clear to auscultation bilaterally, no rales and no wheezes Cardio Rate: regular rate Rhythm: regular rhythm Heart sounds: no murmurs GI Palpation (GI): Soft to palpation and nontender Auscultation: normal bowel sounds General: Yes no CVA tenderness Back/Spine/Pelvis Back: no CVA tenderness Thoracic/Lumbar Spine: No lumbar spinal tenderness Skin Rashes: no rashes Extrem General: Yes no clubbing, cyanosis or edema Results Reviewed Results Reviewed: Laboratory Tests 10/06/23 10/06/24 10/06/24 14:42 09:52 10:00 WBC 2.7 L Hgb 13.9 L Hct 40.2 L Plt Count 220 Sodium 138 Potassium 4.0 Creatinine 0.78 Estimated GFR > 60 Glucose (Clinic) 101 Fasting Glucose 131 H Hemoglobin A1c % 7.0 H Calcium 9.3 AST 22 ALT 25 Triglycerides 49 Cholesterol 152 LDL Cholesterol, Calc 82 HDL Cholesterol 61 PSA Screen 2.28 25-OH Vitamin D Total 15.8 L TSH 1.84 Total Testosterone 512 Fr Testosterone Dialys 76.3 Ur Specific [place] >= 1.030 H Urine Protein Negative Urine Glucose (UA) Negative Urine Blood Negative Urine Nitrite Negative Ur Leukocyte Esterase Negative Microalb/Creat Ratio 4.9 Coding Level of Care Code Est Pt Level 4 (46051) Diagnoses Type 2 diabetes mellitus with diabetic polyneuropathy, with long-term current use of insulin E11.42; Z79.4 Diabetes mellitus type: type 2 Diabetes mellitus terminal make up operator insulin use: with terminal make up operator use Diabetes mellitus complication status: with neurologic complications Diabetes mellitus complication detail: with polyneuropathy Pure hypercholesterolemia E78.00 Elevated LFTs R79.89 GERD without esophagitis K21.9 Constipation, unspecified constipation type K59.00 Constipation type: unspecified constipation type Vitamin D deficiency E55.9 Neuropathy G62.9 Insomnia, unspecified type G47.00 Insomnia type: unspecified Additional Codes PHQ-9 - 04543 - PHQ-9 Billing: Yes ([id number]) Assessment & Plan Assessment & Plan (1) Diabetes mellitus: Code(s): E11.9 - Type 2 diabetes mellitus without complications Category: Medical Qualifiers: Diabetes mellitus type: type 2 Diabetes mellitus terminal make up operator insulin use: with terminal make up operator use Diabetes mellitus complication status: with neurologic complications Diabetes mellitus complication detail: with polyneuropathy Qualified Code(s): E11.42 - Type 2 diabetes mellitus with diabetic polyneuropathy; Z79.4 - jail (current) use of insulin Plan: His HgbA1c was at 7.0% on his labs done last week (was previously at 6.6% a few months ago) - goal is < 7.0% Reinforced diabetic diet Continue Jardiance 25 mg QD, Toujeo 40 units QD, Humalog 25 units 3 times a day with meals dosed per sliding scale, Pioglitazone 30 mg QD and Ozempic 1 mg SQ once a week He is also on Losartan 25 mg QD for renoprotection He was seeing endocrinology diabetes but as his diabetes is well controlled, he is returned to our care and was advised to just see endocrinology again on an as-needed basis (2) Pure hypercholesterolemia: Code(s): E78.00 - Pure hypercholesterolemia, unspecified Category: Medical Plan: Results of his labs done last week reviewed and discussed with patient Reinforced low cholesterol diet Continue Atorvastatin 40 mg QD Will recheck his labs and fasting lipids in 4 months for follow up (3) Elevated LFTs: Code(s): R79.89 - Other specified abnormal findings of blood chemistry Category: Medical Plan: Resolved - his LFTs have remained normal on his recent labs done last week Will continue to monitor his LFTs regularly (4) GERD without esophagitis: Code(s): K21.9 - Gastro-esophageal reflux disease without esophagitis Category: Medical Plan: Dietary restrictions reinforced (5) Constipation: Code(s): K59.00 - Constipation, unspecified Category: Medical Qualifiers: Constipation type: unspecified constipation type Qualified Code(s): K59.00 - Constipation, unspecified Plan: Improved - patient is again encouraged to increase his oral fluids and dietary fiber intake Continue Linzess 145 mcg QD and Senna 8.6 mg 1 to 2 tablets Q HS PRN (6) Vitamin D deficiency: Code(s): E55.9 - Vitamin D deficiency, unspecified Category: Medical Plan: Patient is advised that his Vitamin D level has dropped significantly from previous He admits that he often forgets to take this Continue Vitamin D3 2000 units QD - have advised him to try to remember taking this daily and his son will try to help him with this (7) Neuropathy: Code(s): G62.9 - Polyneuropathy, unspecified Category: Medical Plan: EMG and NCV done on 09/02/2017 revealed (+)? mild sensory and motor, axonal and chronic peripheral neuropathy and mild to moderate bilateral distal tibial neuropathy across the tarsal tunnel Emphasize again the importance of strict glycemic control to help slow down the progression of his neuropathy Continue Gabapentin 100 mg Q HS and Tramadol 50 mg TID PRN for pain (8) Insomnia: Code(s): G47.00 - Insomnia, unspecified Category: Medical Qualifiers: Insomnia type: unspecified Qualified Code(s): G47.00 - Insomnia, unspecified Plan: Sleep hygiene reinforced He used to take Trazodone 50 mg once a day at bedtime as needed but has not needed to lately Plan Follow up in 4 months Orders: Orders Lipid Panel 4 Months E78.00 - Pure hypercholesterolemia, unspecified Microalbumin, Random (w Creat) 4 Months E11.9 - Type 2 diabetes mellitus without complications UA CC w/rflx Micro + Cult 4 Months R30.0 - Dysuria Vitamin B12 and Folate 4 Months E53.8 - Deficiency of other specified B group vitamins Hemoglobin A1c 4 Months E11.9 - Type 2 diabetes mellitus without complications Complete Blood Count Auto Diff 4 Months D64.9 - Anemia, unspecified Comprehensive [place]. Panel Fast 4 Months E78.00 - Pure hypercholesterolemia, unspecified TSH reflex Free T4 4 Months E78.00 - Pure hypercholesterolemia, unspecified Vitamin D 25-OH Total 4 Months E55.9 - Vitamin D deficiency, unspecified
[2024-10-13 17:31] VITALS: BP 102/64; PULSE 67; O2SAT 97; BMI 23.1
== END 2024-10-13 17:54 | disposition home or self-care (01) ==
LOC: HO.HMCH 17:23
PROVIDERS: PCP Internal Medicine; Visit Provider Internal Medicine
DX: E11.42 Type 2 diabetes mellitus with diabetic polyneuropathy (principal); Z79.4 Long term (current) use of insulin; E78.00 Pure hypercholesterolemia, unspecified; R79.89 Other specified abnormal findings of blood chemistry; K21.9 Gastro-esophageal reflux disease without esophagitis; K59.00 Constipation, unspecified; E55.9 Vitamin D deficiency, unspecified; G62.9 Polyneuropathy, unspecified; G47.00 Insomnia, unspecified

== ENCOUNTER → 2024-10-13 17:23 | Outpatient (BNVA) | payer BC, SELFPAY | PROVIDERS: PCP Internal Medicine; Visit Provider Internal Medicine | DX: E11.42 Type 2 diabetes mellitus with diabetic polyneuropathy (principal); E78.00 Pure hypercholesterolemia, unspecified; R79.89 Other specified abnormal findings of blood chemistry; K21.9 Gastro-esophageal reflux disease without esophagitis; K59.00 Constipation, unspecified; E55.9 Vitamin D deficiency, unspecified; G47.00 Insomnia, unspecified; Z79.4 Long term (current) use of insulin; Z79.899 Other long term (current) drug therapy | CPT/HCPCS: 96127 ==

== ENCOUNTER 2025-07-21 10:03 | Outpatient (REF) | payer BC, SELFPAY ==
--- OUTSIDE RECORDS SUMMARY | 2025-07-21 10:05 | XMS_ITS | Patient Health Record ---
Author Organization [facility] Address [address] [place] [address] Care Team Providers Care Perfect Binder Setter Name Role Phone Emre Ortega Jr Reason For Referral No Information Plan Of Treatment No Information
[2025-07-21 10:33] LABS: MANUAL DIFF FLAG NO
[2025-07-21 11:33] LABS: Hematocrit 39.9 % (42.0-52.0); Hemoglobin 13.8 g/dl (14.0-18.0); Imm Gran Abs Auto 0.00 X10*3/uL (0.00-0.03); Imm Gran Pct Auto 0.0 % (0.0-0.4); Lymphocytes Absolute Auto 1.3 X10*3/uL (1.2-4.9); Mean Corpuscular HGB Conc 34.6 g/dl (31.0-36.0); Mean Corpuscular Hemoglobin 30.3 pg (27.0-33.0); Mean Corpuscular Volume 87.7 fL (80.0-98.0); NRBC Abs Auto 0.000 X10*3/uL (0.0-0.012); NRBC Pct Auto 0.0 /100WBC (0.0-0.2); Platelet Count 216 X10*3/uL (160-400); Red Blood Count 4.55 X10*6/uL (4.60-5.80); White Blood Count 3.7 X10*3/uL (4.8-10.8)
[2025-07-21 11:51] LABS: Appearance Urine Clear; Glucose Urine UA Negative (Negative); PH 5.5 (5.0-9.0); Specific Gravity - Urine >= 1.030 (1.005-1.025)
[2025-07-21 12:20] LABS: Microalbum/Creatinine Ratio Ur 4.8 ug/mg cr (<30)
[2025-07-21 12:24] LABS: Alanine Aminotransferase 27 U/L (0-40); Albumin Level 4.4 g/dL (3.5-5.0); Alkaline Phosphatase 69 U/L (39-117); Anion Gap 11 (12-20); Aspartate Amino Transferase 27 U/L (5-37); Blood Urea Nitrogen 18 mg/dL (9-16); Calcium 9.0 mg/dL (8.4-10.2); Carbon Dioxide 26 mmol/L (22-29); Chloride 108 mmol/L (96-108); Cholesterol 151 mg/dL (<200); Estimated Glomerular Filt Rate > 60; HDL Cholesterol 57 mg/dL (>40); Potassium 4.0 mmol/L (3.3-5.1); Sodium 141 mmol/L (135-145); Total Protein 7.3 g/dL (6.5-8.0); Triglycerides 52 mg/dL (<150)
[2025-07-21 12:48] LABS: Folate 13.4 ng/mL (> or = 4.0); Vitamin B12 213 pg/mL (200-900)
== END 2025-07-21 10:04 | disposition home or self-care (01) ==
LOC: HO.LAB 10:03
PROVIDERS: PCP Internal Medicine; Visit Provider Internal Medicine
DX: E11.9 Type 2 diabetes mellitus without complications (principal); E53.8 Deficiency of other specified B group vitamins; R30.0 Dysuria; E78.00 Pure hypercholesterolemia, unspecified; E55.9 Vitamin D deficiency, unspecified; D64.9 Anemia, unspecified
CPT/HCPCS: 36415; 80053; 80061; 81003; 82043; 82306; 82570; 82607; 82746; 83036; 84443; 85025

== ENCOUNTER 2025-07-26 11:32 | Outpatient (AMB) | payer BC, OTHER, SELFPAY ==
[2025-07-26 11:37] VITALS: BP 120/70; PULSE 68; O2SAT 97; BMI 22.9
--- NOTE | 2025-07-26 11:37 | A.OFFPC_ITS ---
Vital Signs 07/26/25 11:37 Height 5 ft 4 in Weight 133 lb 8 oz BMI 22.9 BP 120/70 Blood Pressure Location Lt brachial Position Sitting Pulse 68 Pulse Source Pulse Oximeter Pulse Oximetry (%) 97 Oxygen Delivery Method Room Air Intake Visit Reasons: dm 4 month follow up Insurance Claims Adjuster Required: No Accompanied by: Self / Same As Patient Allergies Penicillins Allergy (Unknown, Verified 07/26/25 12:03) RASH/SOB Medication List - Last Reconciled 07/26/25 by Viktor Damon MD atorvastatin 40 mg PO DAILY blood sugar diagnostic (FreeStyle Lite Strips) USE TO TEST BLOOD SUGAR 3 TIMES A DAY blood-glucose sensor (Shopetti G7 Sensor device) every 10 days blood-glucose,victim advocate,cont (Dexcom G7 Maintenance Technician 2Nd Shift) As directed cholecalciferol (vitamin D3) 50 mcg PO DAILY 90 days empagliflozin (Jardiance) 25 mg PO DAILY gabapentin 100 mg PO DAILY insulin glargine U-300 conc (Toujeo SoloStar U-300 Insulin) 40 units (0.1333 mL) subcut BEDTIME insulin lispro (Humalog KwikPen (U-100) Insulin) 25 units (0.25 mL) subcut TID 30 days lancets As directed linaclotide (Linzess) 145 mcg PO QAM losartan 25 mg PO DAILY pioglitazone 30 mg PO DAILY semaglutide (Ozempic) 1 mg (0.75 mL) subcut QWEEK 30 days tramadol 50 mg PO Q8H PRN 30 days Tobacco use date assessed: 07/26/25 Dental Screening Dental Screen Date: 07/26/25 Did you have a dental visit in the last 12 months?: Yes Did you have a dental problem in the last 6 months where you did not have access to dental care?: No Was dental information given to patient?: Patient has dentist HPI dm 4 month follow up HPI Details Patient comes in today for his follow-up visit States that he feels okay He denies any headaches or dizziness Denies any chest pains, no increased shortness of breath No nausea/vomiting, no abdominal pain No change in bowel habits noted Needs his Tramadol Rx refilled He had his follow-up labs done last week - to discuss his results His adds that ever since patient's Ozempic was increased to his current 1 mg dose, he has been continuously losing weight and she feels that the 1 mg dose is too much for him and would like to have him try coming back down to the 0.5 mg dose Patient is also supposed to be on Toujeo but it looks like he has not been taking this for over a year now as his Toujeo Rx was last refilled over 2 years ago now in September 2022 [facility] Medical History Constipation Vitamin D deficiency HLD (hyperlipidemia) HTN (hypertension) T2DM (type 2 diabetes mellitus) Keratotic lesion Arthralgia Pure hypercholesterolemia Overweight (BMI 25.0-29.9) Insomnia Neuropathy GERD without esophagitis Elevated LFTs Dyslipidemia Diabetes mellitus Surgical History History of esophagogastroduodenoscopy (EGD) H/O colonoscopy Hx of circumcision Hx of cholecystectomy Family History Father Medical history unknown Mother Diabetes Hypertension Other Substance abuse Social History Housing: House Alcohol intake: current Alcohol intake frequency: holidays/special occasions only Patient Tobacco Use Status: Never used Tobacco e-Cigarette/Vaping Use: Never Used Second Hand Smoke Exposure: Yes service: No Current occupational status: employed 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 1. Little interest or pleasure in doing things: not at all 2. Feeling down, depressed, or hopeless: not at all 3. Trouble falling or staying asleep, or sleeping too much: not at all 4. Feeling tired or having little energy: not at all 5. Poor appetite or overeating: not at all 6. Feeling bad about yourself - or that you are a failure or have let yourself or your family down: not at all 7. Trouble concentrating on things, such as reading the newspaper or watching television: not at all 8. Moving or speaking so slowly that other people could have noticed. Or the o pposite - being so fidgety or restless that you have been moving around a lot more than usual: not at all 9. Thoughts that you would be better off or of hurting yourself in some way: not at all Total score: 0 Depression Screening Interpretation: Negative Depression Screening Done: Yes 30535 - PHQ-9 Billing: Yes Source: Developed by Drs. Efe Hernandez, Chanel Antoine, Kwame Ruiz and colleagues, with an educational sue from [employer]. Thrive Questionnaire Date Thrive assessed: 07/26/25 I am a: Patient What is your living situation today?: I have a steady place to live Within the past 12 months, did the food you bought not last and you didn't have the money to get more?: Never true Within the past 12 months, did you worry whether your food would run out before you got money to buy more?: Never true Do you have trouble paying for medicines?: No Do you have trouble getting transportation to medical appointments?: No Do you have trouble paying your heating and electricity bill?: No Do you have trouble taking care of your child, family member or friend?: No Do you have trouble with day-to-day activities such as bathing, preparing meals, shopping, managing finances, etc.?: No Are you currently unemployed and looking for a job?: No Are you interested in more education?: No Please select the resources that you would like help with: None Currently or been in a relationship where the following occur: No concerns reported THRIVE Score: 0 AUDIT C Alcohol Use Questionnaire (AUDIT-C) 1. How often do you have a drink containing alcohol?: Monthly or less 2. How many drinks containing alcohol do you have on a typical day when you are drinking?: 1 or 2 3. How often do you have six or more drinks on one occasion?: Never Total Score: 1 Score Reviewed/Action Taken: Yes PHIL-7 AMB Questionnaire PHIL-7 Date PHIL - 7 assessed: 07/26/25 Feeling nervous, anxious, or on edge: 0 = Not at all Not being able to stop or control worryin = Not at all Worrying too much about different things: 0 = Not at all Trouble relaxin = Not at all Being so restless that it is hard to sit still: 0 = Not at all Becoming easily annoyed or irritable: 0 = Not at all Feeling afraid as if something awful might happen: 0 = Not at all Total PHIL-7 score (0-4 normal; 5-9 mild; 10-14 moderate; 15-21 severe): 0 Source: Developed by Drs. Efe Hernandez, Chanel Antoine, Kwame Ruiz and colleagues, with an educational sue from [employer]. Review of Systems Const Denies chills, Denies fatigue, Denies fever(s) and Denies headache(s) ENT Denies dysphagia, Denies dizziness, Denies otalgia, Denies headache(s), Denies neck pain, Denies odynophagia and Denies sore throat Card Denies chest pain, Denies palpitations and Denies dyspnea Resp Denies chest congestion, Denies cough and Denies dyspnea GI Denies abdominal pain, Reports constipation (on and off), Denies dysphagia, Denies heartburn, Denies diarrhea, Denies nausea, Denies odynophagia and Denies vomiting Denies difficulty urinating, Denies dysuria, Denies nocturia and Denies urinary frequency Musc Denies back pain and Denies neck pain Skin/Breast Denies rash Neuro Denies dizziness and Denies headache(s) Endo Denies fatigue and Denies palpitations Physical exam (Primary Care) Vital Signs: Last Vital Signs Pulse 68 07/26/25 11:37 BP 120/70 07/26/25 11:37 Pulse Ox 97 07/26/25 11:37 Oxygen Delivery Method Room Air 07/26/25 11:37 BMI result Body Mass Index 22.9 Tobacco/Smoking Status: Tobacco use Status Tobacco use date assessed 07/26/25 07/26/25 11:41 Patient Tobacco Use Status Never used Tobacco 07/26/25 11:41 e-Cigarette/Vaping Use Never Used 07/26/25 11:41 PHQ-9: PHQ-9 Score PHQ-9: Total score 0 07/26/25 12:03 Depression Screening Interpretation: Negative Thrive Assessment: Date of Thrive Assessment Date Thrive assessed 07/26/25 12 11:41 Currently or been in a relationship where the following occur: No concerns reported Const General: no acute distress and alert HENMT Ears: TM's normal bilaterally and EAC's normal Throat: Yes posterior oropharynx normal and Yes tonsils normal (no TP congestion noted) Neck Neck: Yes no lymphadenopathy and Yes supple Thyroid: Thyroid normal Resp Auscultation: clear to auscultation bilaterally, no rales and no wheezes Cardio Rate: regular rate Rhythm: regular rhythm Heart sounds: no murmurs GI Palpation (GI): Soft to palpation and nontender Auscultation: normal bowel sounds General: Yes no CVA tenderness Back/Spine/Pelvis Back: no CVA tenderness Thoracic/Lumbar Spine: No lumbar spinal tenderness Skin Rashes: no rashes Extrem General: Yes no clubbing, cyanosis or edema Results Reviewed Results Reviewed: Laboratory Tests 07/21/25 07/21/25 10:29 10:31 WBC 3.7 L Hgb 13.8 L Hct 39.9 L Plt Count 216 Sodium 141 Potassium 4.0 Creatinine 0.70 Estimated GFR > 60 Fasting Glucose 140 H Hemoglobin A1c % 7.5 H Calcium 9.0 AST 27 ALT 27 Triglycerides 52 Cholesterol 151 LDL Cholesterol, Calc 84 HDL Cholesterol 57 Vitamin B12 213 25-OH Vitamin D Total 23.3 L TSH 2.03 Ur Specific [place] >= 1.030 H Urine Protein Negative Urine Glucose (UA) Negative Urine Blood Negative Urine Nitrite Negative Ur Leukocyte Esterase Negative Microalb/Creat Ratio 4.8 Coding Level of Care Code Complex visit Add On G2211 Diagnoses Type 2 diabetes mellitus with diabetic polyneuropathy, with long-term current use of insulin E11.42; Z79.4 Diabetes mellitus type: type 2 Diabetes mellitus buttermaker continuous churn insulin use: with buttermaker continuous churn use Diabetes mellitus complication status: with neurologic complications Diabetes mellitus complication detail: with polyneuropathy Pure hypercholesterolemia E78.00 Elevated LFTs R79.89 GERD without esophagitis K21.9 Constipation, unspecified constipation type K59.00 Constipation type: unspecified constipation type Vitamin D deficiency E55.9 Neuropathy G62.9 Insomnia, unspecified type G47.00 Insomnia type: unspecified Additional Codes PHQ-9 - 48711 - PHQ-9 Billing: Yes ([id number]) Assessment & Plan Assessment & Plan (1) Diabetes mellitus: Code(s): E11.9 - Type 2 diabetes mellitus without complications Category: Medical Qualifiers: Diabetes mellitus type: type 2 Diabetes mellitus long-term insulin use: with long-term use Diabetes mellitus complication status: with neurologic complications Diabetes mellitus complication detail: with polyneuropathy Qualified Code(s): E11.42 - Type 2 diabetes mellitus with diabetic polyneuropathy; Z79.4 - buttermaker continuous churn (current) use of insulin Plan: His HgbA1c increased to 7.5% on his labs done last week (was previously at 7.0% a few months ago and at 6.6% earlier this year) - goal is < 7.0% Reinforced diabetic diet Continue Jardiance 25 mg QD, Humalog 25 units 3 times a day with meals dosed per sliding scale and Pioglitazone 30 mg QD Per his 's request, will try lowering his Ozempic from 1 mg back to 0.5 mg SQ once a week Patient is also supposed to be on Toujeo but it looks like he has not been taking this for over a year now as his Toujeo Rx was last refilled over 2 years ago now in September 2022 - this could explain why his diabetes control has been slowly and steadily getting worse over the past year so will go ahead and start him BACK on Toujeo but at 20 units Q HS for now He is also on Losartan 25 mg QD for renoprotection He was seeing endocrinology diabetes but as his diabetes is well controlled, he is returned to our care and was advised to just see endocrinology again on an as-needed basis (2) Pure hypercholesterolemia: Code(s): E78.00 - Pure hypercholesterolemia, unspecified Category: Medical Plan: Results of his labs done last week reviewed and discussed with patient Reinforced low cholesterol diet Continue Atorvastatin 40 mg QD Will recheck his labs and fasting lipids in 4 months for follow up (3) Elevated LFTs: Code(s): R79.89 - Other specified abnormal findings of blood chemistry Category: Medical Plan: Resolved - his LFTs have remained normal on his follow up labs done last week Will continue to monitor his LFTs regularly (4) GERD without esophagitis: Code(s): K21.9 - Gastro-esophageal reflux disease without esophagitis Category: Medical Plan: Dietary restrictions reinforced (5) Constipation: Code(s): K59.00 - Constipation, unspecified Category: Medical Qualifiers: Constipation type: unspecified constipation type Qualified Code(s): K59.00 - Constipation, unspecified Plan: Improved - patient is again encouraged to increase his oral fluids and dietary fiber intake Continue Linzess 145 mcg QD and Senna 8.6 mg 1 to 2 tablets Q HS PRN (6) Vitamin D deficiency: Code(s): E55.9 - Vitamin D deficiency, unspecified Category: Medical Plan: Continue Vitamin D3 2000 units QD (7) Neuropathy: Code(s): G62.9 - Polyneuropathy, unspecified Category: Medical Plan: EMG and NCV done back on 09/02/2017 revealed (+)? mild sensory and motor, axonal and chronic peripheral neuropathy and mild to moderate bilateral distal tibial neuropathy across the tarsal tunnel Have emphasized to patient again the importance of strict glycemic control to help slow down the progression of his neuropathy Continue Gabapentin 100 mg Q HS and Tramadol 50 mg TID PRN for pain (Rx refilled) (8) Insomnia: Code(s): G47.00 - Insomnia, unspecified Category: Medical Qualifiers: Insomnia type: unspecified Qualified Code(s): G47.00 - Insomnia, unspecified Plan: Sleep hygiene reinforced He used to take Trazodone 50 mg once a day at bedtime as needed but has not needed to lately Plan Follow up in 4 months Orders: Orders Complete Blood Count Auto Diff 4 Months D64.9 - Anemia, unspecified Comprehensive [place]. Panel Fast 4 Months E78.00 - Pure hypercholesterolemia, unspecified Microalbumin, Random (w Creat) 4 Months E11.9 - Type 2 diabetes mellitus without complications TSH reflex Free T4 4 Months E78.00 - Pure hypercholesterolemia, unspecified Vitamin D 25-OH Total 4 Months E55.9 - Vitamin D deficiency, unspecified Hemoglobin A1c 4 Months E11.9 - Type 2 diabetes mellitus without complications Lipid Panel 4 Months E78.00 - Pure hypercholesterolemia, unspecified UA CC w/rflx Micro + Cult 4 Months R30.0 - Dysuria Vitamin B12 and Folate 4 Months E53.8 - Deficiency of other specified B group vitamins Medications: Changed From insulin glargine U-300 conc (Toujeo SoloStar U-300 Insulin) 40 units (0.1333 mL) subcut BEDTIME 4.5 mL 5RF E11.9 - Type 2 diabetes mellitus without complications To insulin glargine U-300 conc (Toujeo SoloStar U-300 Insulin) 20 units (0.0667 mL) subcut BEDTIME 4.5 mL 5RF E11.9 - Type 2 diabetes mellitus without complications From semaglutide (Ozempic) 1 mg (0.75 mL) subcut QWEEK 30 days 3.75 mL 11RF E11.9 - Type 2 diabetes mellitus without complications To semaglutide 0.5 mg (0.736 mL) subcut QWEEK 3.68 mL 11RF 30 days E11.9 - Type 2 diabetes mellitus without complications Refilled tramadol 50 mg PO Q8H PRN 90 tabs 1RF pain 30 days G62.9 - Polyneuropathy, unspecified, M25.50 - Pain in unspecified joint
== END 2025-07-26 12:44 | disposition home or self-care (01) ==
LOC: HO.HMCH 11:33
PROVIDERS: PCP Internal Medicine; Visit Provider Internal Medicine
DX: E11.42 Type 2 diabetes mellitus with diabetic polyneuropathy (principal); Z79.4 Long term (current) use of insulin; E78.00 Pure hypercholesterolemia, unspecified; R79.89 Other specified abnormal findings of blood chemistry; K21.9 Gastro-esophageal reflux disease without esophagitis; K59.00 Constipation, unspecified; E55.9 Vitamin D deficiency, unspecified; G62.9 Polyneuropathy, unspecified; G47.00 Insomnia, unspecified

== ENCOUNTER → 2025-07-26 11:32 | Outpatient (BNVA) | payer BC, SELFPAY | PROVIDERS: PCP Internal Medicine; Visit Provider Internal Medicine | DX: E11.42 Type 2 diabetes mellitus with diabetic polyneuropathy (principal); E78.00 Pure hypercholesterolemia, unspecified; R79.89 Other specified abnormal findings of blood chemistry; K21.9 Gastro-esophageal reflux disease without esophagitis; K59.00 Constipation, unspecified; E55.9 Vitamin D deficiency, unspecified; G62.9 Polyneuropathy, unspecified; G47.00 Insomnia, unspecified; Z79.4 Long term (current) use of insulin | CPT/HCPCS: 96127 ==